=== PATIENT | female | born 1940 | race Caucasian/White ===

== ENCOUNTER 2020-07-04 17:59 | Emergency (ER) | payer MEDICARE, SELFPAY ==
[2020-07-04] VITALS (7 sets, daily range): BP systolic 106–123; BP diastolic 63–89; PULSE 54–65; RESP 12–18; TEMP 36.6; O2SAT 89–100
--- NOTE | 2020-07-04 18:49 | PC.NURSE ---
[facility] declined return to [place] [facility] accepted return ETA - 0000(midnight) Trip#[id number]
--- NOTE | 2020-07-04 20:37 | ED.GENADULT ---
HPI - General Adult General Chief complaint: Wound/Laceration Stated complaint: LACERATION R THUMB Time Seen by Provider: 07/04/20 18:08 Source: patient Mode of arrival: ambulatory Limitations: no limitations History of Present Illness HPI narrative: Patient is an 79-year-old female who presents with thumb [facility]eration from the [facility] patient is DNR comfort measures only alert and oriented to self at best. Patient has history of frequent falls. Patient was sent for right thumb laceration had caught the thumb on a sharp edge. Patient on arrival does not appear distressed or uncomfortable and is otherwise resting in the bed. Patient does not answer questions appropriately. Related Data Home Medications Medication Instructions Recorded Confirmed mirtazapine mg 07/04/20 quetiapine 07/04/20 Allergies Allergy/AdvReac Type Severity Reaction Status Date / Time No Known Allergies Allergy Verified 07/04/20 18:17 Review of Systems Review of Systems: ROS unobtainable: Yes unobtainable due to mental status PMFSH Past Medical History Medical History (Updated 07/04/20 @ 21:14 by Marcelo Lira PA-C) Dementia Exam Narrative: Exam Narrative: GENERAL: Well-appearing, well-nourished, and in no acute distress. HEAD: Normocephalic, atraumatic. EYES: PERRLA and EOMI. ENT: Nares clear, no rhinorrhea or epistaxis. Mucous membranes moist. CHEST: Clear to auscultation. No respiratory distress. No wheezes rales or rhonchi HEART: Regular rate and rhythm. No murmur heard. Normal peripheral pulses. ABDOMEN: Soft, nontender, nondistended EXTREMITIES: Normal range of motion. No edema. 2 cm linear flap laceration along the lateral aspect of the right thumb SKIN: Warm, dry, no rash. NEURO: No focal deficits. Orients to verbal stimuli. Cranial nerves II through XII grossly intact. Neurovascularly intact. Capillary refill less than 2 seconds PSYCH: Normal mood and affect. Course Vital Signs Vital signs: Vital Signs Temperature 97.8 F 07/04/20 18:07 Pulse Rate 64 07/04/20 18:07 Respiratory Rate 13 07/04/20 18:07 Blood Pressure 123/63 07/04/20 18:07 Pulse Oximetry 98 07/04/20 18:07 Temperature 97.8 F 07/04/20 18:07 Pulse Rate 64 07/04/20 19:01 Respiratory Rate 16 07/04/20 19:01 Blood Pressure 108/89 07/04/20 19:01 Pulse Oximetry 99 07/04/20 19:01 Procedures Laceration Laceration 1: Date: 07/04/20 Time: 21:11 Site: upper extremity Side (If applicable): right Size (cm): 2 Description: flap Depth: simple, single layer Local Anesthetic: other anesthetic Pre-repair: wound explored, irrigated and irrigated extensively ====== Skin Level ====== Skin layer closed with: camden Number of sutures: 5 ====== Subcutaneous Layer ====== ====== Muscle Layer ====== ====== Tendon Layer ====== Dressing: Patient's wound was prepped with soap scrub wound was explored let was used to anesthetize the wound which was adequate camden were used to close the thumb wound given that the patient is taking and was concerned that she would pick her sutures out. Camden are in wound is well approximated neurovascularly intact antibiotic ointment nonadhesive 4 x 4 and Coban placed post procedure Medical Decision Making MDM Narrative Medical decision making narrative: Patients injury or pain is consistent with musculoskeletal etiology. No signs of neurological or vascular compromise on exam. Compartments and tisues are soft without signs of compartment syndrome. Pain is felt appropriate for further evaluation on an outpatient basis. Wound closed in the emergency department. [facility] Vital Signs Vital Signs: Vital Signs Temperature 97.8 F 07/04/20 18:07 Pulse Rate 64 07/04/20 18:07 Respiratory Rate 13 07/04/20 18:07 Blood Pressure 123/63 07/04/20 18:07 Pulse
--- NOTE | 2020-07-04 20:39 | PC.NURSE ---
tried to contact [facility], [facility] and [employer] to get a faster ETA. all companies declined having trucks
--- NOTE | 2020-07-04 21:11 | PC.NURSE ---
[facility] called 2103 to inform me that they are in route to [place]. eta 20 minutes. kristi called again stating the rig was pulled for a 911 call and new eta is 2200
--- NOTE | 2020-07-05 00:07 | PC.NURSE ---
[facility] has arrived
== END 2020-07-05 00:22 ==
PROVIDERS: Emergency Provider Emergency Medicine; PCP Family Medicine
DX: S61.011A Laceration without foreign body of right thumb without damage to nail, initial encounter (principal); F03.90 Unspecified dementia, unspecified severity, without behavioral disturbance, psychotic disturbance, mood disturbance, and anxiety; Z66 Do not resuscitate; R29.6 Repeated falls; W26.9XXA Contact with unspecified sharp object(s), initial encounter
CPT/HCPCS: 12001; 99282

== ENCOUNTER 2021-02-20 08:09 | Emergency (ER) | payer MEDICARE, SELFPAY ==
[2021-02-20 08:13] VITALS: BP 129/72; PULSE 59; RESP 18; O2SAT 98
--- NOTE | 2021-02-20 09:04 | ED.FALL ---
HPI - Fall General Chief Complaint: Fall Stated Complaint: FALL Time Seen by Provider: 02/20/21 08:46 Source: EMS Mode of arrival: EMS Limitations: physical limitation, clinical condition and dementia History of Present Illness HPI Narrative: 80-year-old female Severe dementia, O x0-1 From SNF after some sort of a fall, details are lacking In any case she has a small laceration to her right upper lip She cannot make any other lucid complaints or offer any history but does not appear to have any other injuries Related Data Home Medications Medication Instructions Recorded Confirmed mirtazapine 7.5 mg PO HS 07/04/20 07/04/20 quetiapine 25 mg PO BID 07/04/20 Allergies Allergy/AdvReac Type Severity Reaction Status Date / Time No Known Allergies Allergy Verified 07/04/20 18:17 Review of Systems Review of Systems: ROS unobtainable: Yes unobtainable due to medical condition, unobtainable due to mental status and other (Patient is severely demented, uncooperative) PMF Past Medical History Medical History Dementia Exam Const: General: cooperative, alert and ill appearing Nutritional Appearance: thin Limitations: behavioral limitations Other: Frail, elderly, O x0 HENMT: Head: normal to inspection, normocephalic, atraumatic and laceration Ears: external ears normal General nose exam: no epistaxis Other: Small laceration upper right lip 3 or 4 mm which does not appear to be through and through Does not appear to have any luxation or broken teeth Eyes: Conjunctivae: conjunctivae normal EOM: EOMs intact bilaterally Neck: Neck: normal visual inspection, supple and no JVD Chest: Other: No chest wall tenderness Resp: Effort & Inspection: normal respiratory effort and not labored Auscultation: clear to auscultation bilaterally and other (BS =) GI: GI Palp: Yes Soft to palpation and No Tenderness to palpation present (GI) Skin: General skin exam: no rashes or lesions noted Neuro: General: moves all extremities Extrem: Other: No obvious injuries or deformities Course Course Emergency Course: She has a fairly minor laceration which could be repaired for cosmesis but she is not at all cooperative enough to even consider doing that As she is a DNR with comfort measures and no other obvious injuries we did not pursue any other imaging to look for occult issues which would not be addressed given those constraints Vital Signs Vital signs: Vital Signs Pulse Rate 59 L 02/20/21 08:13 Respiratory Rate 18 02/20/21 08:13 Blood Pressure 129/72 02/20/21 08:13 Pulse Oximetry 98 02/20/21 08:13 Pulse Rate 59 L 02/20/21 08:13 Respiratory Rate 18 02/20/21 08:13 Blood Pressure 129/72 02/20/21 08:13 Pulse Oximetry 98 02/20/21 08:13 MDM - Fall Medical Records Attestation: I reviewed the patient's medical records. Discharge Plan Discharge Clinical Impression: Laceration of lip [facility] Condition: Stable Instructions: Laceration (ED) Additional Instructions: If patient would allow, antibiotic ointment could be placed on the lip laceration 3 times a day Prescriptions: No Action quetiapine 25 mg tablet 25 mg PO BID RF: 0 mirtazapine 7.5 mg tablet 7.5 mg PO HS RF: 0 Follow-up/Referrals: Marivel,Binu Ferrer MD [Primary Care Provider] - (As needed)
--- NOTE | 2021-02-20 09:48 | PC.NURSE ---
Patient ready for discharge back to facility. Awaiting patient transport at this time. Will continue to monitor patient
--- NOTE | 2021-02-20 10:13 | PC.NURSE ---
Transport has been called and set up for patient. Awaiting call back ETA.
== END 2021-02-20 10:48 ==
PROVIDERS: Emergency Provider Emergency Medicine; PCP Family Medicine
DX: S01.511A Laceration without foreign body of lip, initial encounter (principal); F03.90 Unspecified dementia, unspecified severity, without behavioral disturbance, psychotic disturbance, mood disturbance, and anxiety; Z66 Do not resuscitate; W19.XXXA Unspecified fall, initial encounter
CPT/HCPCS: 99282

== ENCOUNTER 2021-04-19 02:08 | Emergency (ER) | payer MEDICARE, SELFPAY ==
--- NOTE | ~2021-04-19 | CT_ITS ---
EXAMINATION: CT brain wo con DATE: 04/19/2021 03:47 INDICATION: Head injury. TECHNIQUE: Computed tomography (CT) of the head was performed without intravenous contrast. The mA wa s adjusted according to patient size. Iterative reconstruction technique was employed. The dose-lengt h product was 605.33 mGy-cm. COMPARISON: None FINDINGS: There is diffuse brain volume loss with a posterior predominance. There are scattered areas of low attenuation in the cerebral white matter. There is no intracranial hemorrhage, acute infarcti on, or abnormal intracranial mass lesion. There is expected dilatation of the occipital and temporal horns of the lateral ventricles. There is complete opacification of the left frontal, anterior ethmoi d, and maxillary sinuses with thickening and sclerosis of the sinus carias, consistent with chronic si nusitis. The mastoid air cells are normal. The orbits are normal. IMPRESSION: 1. Extensive nonspecific cerebral white matter disease, which likely represents chronic small vessel ischemic disease. 2. Chronic sinusitis. Reviewed, dictated and finalized at location A. RING MACHINE OPERATOR
[2021-04-19 02:05] VITALS: BP 130/67; PULSE 67; RESP 24; TEMP 35.8; O2SAT 100
--- NOTE | 2021-04-19 03:28 | ED.GENADULT ---
HPI - General Adult General Chief complaint: Fall Stated complaint: fall head laceration Time Seen by Provider: 04/19/21 02:34 History of Present Illness HPI narrative: 80-year-old female [facility] having a ground-level fall. Patient did strike her head. Patient does have skin tears of varying ages. Related Data Home Medications Medication Instructions Recorded Confirmed mirtazapine 7.5 mg PO HS 07/04/20 07/04/20 quetiapine 25 mg PO BID 07/04/20 Allergies Allergy/AdvReac Type Severity Reaction Status Date / Time No Known Allergies Allergy Verified 07/04/20 18:17 Review of Systems Review of Systems: ROS unobtainable: Yes unobtainable due to mental status and other (dementia) [facility] [place] Past Medical History Medical History Dementia Exam Narrative: APPEARANCE: Well appearing, no pain in distress HEAD: normocephalic, 2 cm laceration on scalp. EYES: PERRLA/EOMI, conjunctivae clear. NOSE: Normal no drainage EARS:TMS clear with good light reflex. THROAT: Pharynx clear, no exudate. NECK: Supple. No adenopathy, no masses. RESPIRATORY: Airway patent, respirations nonlabored. Clear to auscultation bilaterally, no rales, rhonchi, wheezing. CARDIOVASCULAR: Regular rate and rhythm without murmurs rubs or gallops. ABDOMINAL: Soft, nontender, nondistended, normal bowel sounds MUSCULOSKELETAL: Moves all extremities. Strength/ROM intact, No edema, No calf tenderness. NEURO: Alert. Cranial nerves II through XII intact. Good gait. Good coordination SKIN: Other skin tears on right arm and a new skin tear left arm PSYCHIATRIC: Normal affect/mood. Course Course Emergency Course: Scalp laceration was repaired as described in the procedure note Head CT was negative for acute intracranial abnormality. [facility] Vital Signs Vital signs: Vital Signs Temperature 96.5 F L 04/19/21 02:05 Pulse Rate 67 04/19/21 02:05 Respiratory Rate 24 H 04/19/21 02:05 Blood Pressure 130/67 04/19/21 02:05 Pulse Oximetry 100 04/19/21 02:05 Temperature 96.5 F L 04/19/21 02:05 Pulse Rate 59 L 04/19/21 05:36 Respiratory Rate 18 04/19/21 05:36 Blood Pressure 132/64 04/19/21 05:36 Pulse Oximetry 96 04/19/21 05:36 Procedures Laceration Laceration 1: Time: 03:28 Site: scalp Size (cm): 2 Description: linear Local Anesthetic: lidocaine 1% ====== Skin Level ====== Skin layer closed with: camden Number of sutures: 3 ====== Subcutaneous Layer ====== ====== Muscle Layer ====== ====== Tendon Layer ====== Laceration 2: Time: : Site: upper extremity Side (If applicable): left Size (cm): 4 Description: other (Skin tear) ====== Skin Level ====== Skin layer closed with: steri strips ====== Subcutaneous Layer ====== ====== Muscle Layer ====== ====== Tendon Layer ====== Medical Decision Making MDM Narrative Medical decision making narrative: Head CT was ordered. Scalp laceration repaired with 3 camden Skin tear on left arm was repaired with Steri-Strips All other skin tears were cleansed and treated with antibiotic ointment Vital Signs Vital Signs: Vital Signs Temperature 96.5 F L 04/19/21 02:05 Pulse Rate 67 04/19/21 02:05 Respiratory Rate 24 H 04/19/21 02:05 Blood Pressure 130/67 04/19/21 02:05 Pulse Oximetry 100 04/19/21 02:05 Temperature 96.5 F L 04/19/21 02:05 Pulse Rate 59 L 04/19/21 05:36 Respiratory Rate 18 04/19/21 05:36 Blood Pressure 132/64 04/19/21 05:36 Pulse Oximetry 96 04/19/21 05:36 Imaging Data Radiologist's impression: Stat read: CT head impression: No acute intracranial abnormality. Moderate chronic senescent findings: Parenchymal volume loss, nonspecific white matter hypoattenuat
[2021-04-19 03:57] VITALS: BP 118/56; RESP 18; O2SAT 97
[2021-04-19 05:36] VITALS: BP 132/64; PULSE 59; RESP 18; O2SAT 96
--- NOTE | 2021-04-19 07:51 | PC.NURSE ---
[facility] has arrived
== END 2021-04-19 07:54 ==
PROVIDERS: Emergency Provider Emergency Medicine; PCP Family Medicine
DX: S01.01XA Laceration without foreign body of scalp, initial encounter (principal); F03.90 Unspecified dementia, unspecified severity, without behavioral disturbance, psychotic disturbance, mood disturbance, and anxiety; W19.XXXA Unspecified fall, initial encounter
CPT/HCPCS: 12001; 70450; 99284

== ENCOUNTER 2021-06-01 12:31 | Emergency (ER) | payer MEDICARE, MEDICAID, SELFPAY ==
--- NOTE | ~2021-06-01 | XR_ITS ---
EXAMINATION: XR elbow RT 2V DATE: 06/01/2021 12:58 INDICATION: Right forearm laceration. TECHNIQUE: 2 views of right elbow were obtained. COMPARISON: None. FINDINGS: Bone alignment is normal. No fracture. Joint spaces are well maintained. No elbow joint eff usion. There is a large forearm laceration. No radiopaque foreign body. IMPRESSION: 1. No fracture or radiopaque foreign body. Reviewed, dictated and finalized at location A. L CADD TECHNICIAN
--- NOTE | ~2021-06-01 | CT_ITS ---
EXAMINATION: CT cervical spine wo con DATE: 06/01/2021 13:39 INDICATION: Neck injury. TECHNIQUE: Computed tomography (CT) of the cervical spine was performed without intravenous contrast. Automated exposure control and iterative reconstruction technique were employed. The dose-length pro duct was 94.17 mGy-cm. COMPARISON: None FINDINGS: There is mild scarring at the lung apices. There is kyphosis of cervical spine. There is mi ld chronic anterior wedging of C4, C5, and C7 vertebral bodies. There is 10 degrees levoscoliosis of cervical spine. 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 There is a comp ression fracture of T3 with less than 1/5 loss of height. There is severely decreased disc height fro m C3-C4 through C6-C7 with endplate remodeling. The following disc levels are specifically discussed: C2-C3: There is moderate bilateral uncovertebral joint osteoarthritis. There is severe bilateral face t joint osteoarthritis. There is mild bilateral neural foraminal stenosis. There is mild central kylah l stenosis. C3-C4: There is severe bilateral uncovertebral joint osteoarthritis. There is moderate bilateral face t joint osteoarthritis. There is mild bilateral neural foraminal stenosis. There is mild central kylah l stenosis. C4-C5: There is severe bilateral uncovertebral joint osteoarthritis. There is severe bilateral facet joint osteoarthritis. There is moderate right and mild left neural foraminal stenosis. There is mild central canal stenosis. C5-C6: Interbody fusion is noted. There is severe bilateral uncovertebral joint osteoarthritis. There is mild right and severe left facet joint osteoarthritis. There is mild bilateral neural foraminal s tenosis. There is mild central canal stenosis. C6-C7: There is severe bilateral uncovertebral joint osteoarthritis. There is moderate bilateral face t joint osteoarthritis. There is moderate bilateral neural foraminal stenosis. There is mild central canal stenosis. C7-T1: There is no uncovertebral joint osteoarthritis. There is severe bilateral facet joint osteoart hritis. There is mild bilateral neural foraminal stenosis. There is no central canal stenosis. IMPRESSION: 1. Age-indeterminate compression fracture of T3 with less than 1/5 loss of height. 2. Severe cervical spondylosis. Reviewed, dictated and finalized at location A. ITE EXTERMINATOR HELPER IMPRESSION: 1. Age-indeterminate compression fracture of T3 with less than 1/5 loss of heig ht. 2. Severe cervical spondylosis.
--- NOTE | ~2021-06-01 | CT_ITS ---
EXAMINATION: CT brain wo con DATE: 06/01/2021 13:36 INDICATION: Confusion. Fall. TECHNIQUE: Computed tomography (CT) of the head was performed without intravenous contrast. The mA wa s adjusted according to patient size. Iterative reconstruction technique was employed. The dose-lengt h product was 605.33 mGy-cm. COMPARISON: Head CT 04/19/2021 FINDINGS: There is diffuse brain volume loss. There are scattered areas of low attenuation in the cer ebral white matter. There is no intracranial hemorrhage, acute infarction, or abnormal intracranial m ass lesion. The ventricles are normal in size. There is mucosal thickening in the paranasal sinuses. There is thickening sclerosis of the carias of the left maxillary and ethmoid sinuses, consistent with chronic sinusitis. The mastoid air cells are normal. The orbits are normal. IMPRESSION: 1. Stable extensive nonspecific cerebral white matter disease, which likely represents chronic small vessel ischemic disease. 2. Chronic sinusitis. Reviewed, dictated and finalized at location A. RVENTIONAL NEURORADIOLOGIST IMPRESSION: 1. Stable extensive nonspecific cerebral white matter disease, which likely rep resents chronic small vessel ischemic disease. 2. Chronic sinusitis.
--- NOTE | ~2021-06-01 | XR_ITS ---
EXAMINATION: XR forearm RT 2V DATE: 06/01/2021 12:58 INDICATION: Right forearm laceration. TECHNIQUE: 2 views of right forearm were obtained. COMPARISON: None. FINDINGS: Bone alignment is normal. No fracture. 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 There is no elbow joint effusion. There is a large forearm laceratio n. IMPRESSION: 1. Large forearm laceration. No fracture or radiopaque foreign body. Reviewed, dictated and finalized at location A. RIAL ASSISTANT
[2021-06-01 12:51] VITALS: O2SAT 100
[2021-06-01 12:52] VITALS: BP 122/81
[2021-06-01 12:56] VITALS: BP 122/81; PULSE 72; RESP 17; TEMP 36.4; O2SAT 98
[2021-06-01 13:01] VITALS: BP 98/74; O2SAT 100
[2021-06-01 13:02] VITALS: O2SAT 100
--- NOTE | 2021-06-01 13:46 | PC.NURSE ---
Pt returned from CT scan and is actively trying to get out of bed. Took multiple staff members to assist pt back to bed, pt was very unsteady on her feet when she tried to get up. Pt had to be lifted back to bed, as she cannot follow commands. Pt tucked in with warm blankets, continues to have hallucinations, talking to her mother and seeing children in the room, etc (this is baseline per EMS report from facility). Tech called to bedside to sit with pt for her safety. Awaiting plastics consult.
--- NOTE | 2021-06-01 13:59 | PC.NURSE ---
Dr Mclain at bedside. 2 techs at bedside to assist
--- NOTE | 2021-06-01 14:26 | ED.UPPEXIN ---
HPI - Extremity Injury (Upper) General Chief Complaint: Extremity Injury, Upper Stated Complaint: laceration Time Seen by Provider: 06/01/21 12:58 Source: EMS and RN notes reviewed Mode of arrival: EMS History of Present Illness HPI narrative: Patient is 80 years old white female, memory care unit, found to have big laceration of the right forearm. Unknown cause. Patient is oriented to her name only which is normal for the patient base mental status Related Data Home Medications Medication Instructions Recorded Confirmed mirtazapine 7.5 mg PO HS 07/04/20 07/04/20 quetiapine 25 mg PO BID 07/04/20 calcium carbonate 06/01/21 Allergies Allergy/AdvReac Type Severity Reaction Status Date / Time No Known Allergies Allergy Verified 07/04/20 18:17 Review of Systems Review of Systems: ROS unobtainable: Yes unobtainable due to medical condition and unobtainable due to mental status PMFSH Past Medical History Medical History Dementia Exam Narrative: General appearance: Well-developed, well-nourished Skin: Normal color, right forearm showing an ugly, regular laceration at the right forearm posteriorly, 14 cm x 7 cm x 1 cm. Macerated skin at the edges, involving subcutaneous fatty layer, no muscle or ligaments involved Head: Normocephalic, nontraumatic, patient have chronic helmet on Eyes: Clear conjunctiva Neck: Supple, nontender Chest and respiratory: Airway patent, no respiratory distress, no accessory muscle use Heart: Regular rate/rhythm Abdomen: Soft, nontender, no organomegaly, quiet bowel sounds Vascular: Normal peripheral pulses, normal capillary refill. Musculoskeletal: Normal range of motion, nontender back Neurologic: Alert to her name only no focal Course Course Emergency Course: Patient was managed by Dr. Mclain in the emergency room prior to discharge back to the assisted, no sutures or camden Consultations Consultation #1: Dr. Mclain Date: 06/01/21 Time: 14:44 Vital Signs Vital signs: Vital Signs Temperature 36.4 C 06/01/21 12:56 Pulse Rate 72 06/01/21 12:56 Respiratory Rate 17 06/01/21 12:56 Blood Pressure 122/81 06/01/21 12:56 Pulse Oximetry 98 06/01/21 12:56 Temperature 36.4 C 06/01/21 12:56 Pulse Rate 72 06/01/21 12:56 Respiratory Rate 17 06/01/21 12:56 Blood Pressure 122/81 06/01/21 12:56 Pulse Oximetry 98 06/01/21 12:56 MDM - Extremity Injury (Upper) Imaging Data Radiologist's impression: Impressions Elbow X-Ray 06/01/21 13:01 IMPRESSION: 1. No fracture or radiopaque foreign body. Forearm X-Ray 06/01/21 13:01 IMPRESSION: 1. Large forearm laceration. No fracture or radiopaque foreign body. Head CT 06/01/21 13:47 IMPRESSION: 1. Stable extensive nonspecific cerebral white matter disease, which likely represents chronic small vessel ischemic disease. 2. Chronic sinusitis. Cervical Spine CT 06/01/21 13:52 IMPRESSION: 1. Age-indeterminate compression fracture of T3 with less than 1/5 loss of height. 2. Severe cervical spondylosis. Critical Care Time Critical Care Time Critical Care Time: Yes Total Critical Care Time: 30 Discharge Plan Discharge Clinical Impression: Laceration Patient Disposition: Hospice [facility] Inpatient Condition: Improved Instructions: Laceration (ED) Additional Instructions: Return if symptoms are worsening , call your family physician for appointment, take Tylenol as as needed for aches and pain, continue home medications. Prescriptions: New cephalexin 500 mg capsule 500 mg PO Q8H Qty: 21 RF: 0 No Action quetiapine 25 m
--- NOTE | 2021-06-01 14:54 | OP_ITS ---
This report was moved to the correct visit, on 06/20/2021. Original report was signed by Orville Mclain MD 06/01/2021 [id number]. ADDENDUM Procedure addendum: The two hanging strips of skin and subcutaneous tissue were quickly amputated with a number 15 scalpel. Addendum Documented By: Orville Mclain MD 06/01/21 1528 Addendum Signed By: <Electronically signed by Orville Mclain MD> 2 1528 Procedure Note - Detailed Date of Procedure 06/01/21 Pre-op Diagnosis 15 cm stellate laceration of left ulnar forearm and elbow. Post-op Diagnosis same Procedure Performed 3 cm sharp excisional debridement of skin and subcutaneous tissue. Steri-Strips wound closure 15 cm of laceration through skin subcutaneous tissue and deep fascia Surgeon Orville Mclain MD Anesthesia none Indications This is a demented female from a [facility] who sustained a long laceration to the ulnar forearm and crossing in stellate fashion over the elbow. The injury was apparently not witnessed. The patient is conversive and very active on the gurney but not fully oriented and cannot give any history. She presents wearing a leather helmet that appears to be part of her normal attire at the [facility]. She is able to grasp and flex her wrist fingers and elbow. Part of the time during the exam and treatment she complained there was pain other times she did not. It was apparent that some muscular tissue had been stripped from the lateral epicondyle and olecranon. Otherwise the wound was through skin subcutaneous tissue and deep fascia running longitudinally along the ulnar forearm approximately 13 cm from the olecranon. There was no significant bleeding. There was no obvious foreign material or soiling. There were 2 narrow flaps of hanging skin and subcutaneous tissue approximately 1 cm wide and 3 and 5 cm in length. This situation was assessed and appeared to me that we would be able to close this wound with Steri-Strips Tegaderm and gauze roll. There appeared to be no motor sensory deficits. Description of Procedure To assistants were available to help hold the right arm with the patient and to keep her lying on her back. We were able to rinse the area and determine the condition of the skin. I was able to apply skin adhesive to both sides of the wound from 1 end to the other. Full length 1/2 inch Steri-Strips were applied from 1 end to the other. These well approximated the skin and margins including the stellate area at the elbow. Following that several medium size Tegaderm were applied over a full-length Telfa sponge. This was then wrapped with Kerlix roll and some gently applied 2 in Coban wrap. The patient seemed to be in better condition following that complaining less and was able to move her arm and hand. Will be hoping to see her in [facility] for some assistance in changing the dressing next week. She is being discharged by the ER physician on some cephalexin. She did receive a Tdap today Estimated Blood Loss 2 Tourniquet Time 0 Drains No Packing No Pathology none sent Complications No immediate complications Condition stable Disposition no change This dictation may have been done utilizing a voice recognition system. Attempts have been made to correct errors. However, there may be uncorrected grammatical, spelling, and recognition errors present. Report Initialized date/time: Orville Mclain MD 06/01/21 / [id number] Electronically signed by: Orville Mclain MD 06/01/21 1456 [facility]
[2021-06-01] MEDS: TETANUS,DIPHTHERIA,AC PERTUSSIS ADULT (0.5 ML) BOOSTRIX IM (15:24)
== END 2021-06-01 16:18 ==
PROVIDERS: Emergency Provider Emergency Medicine; PCP Family Medicine
DX: S51.811A Laceration without foreign body of right forearm, initial encounter (principal); Z23 Encounter for immunization; F03.90 Unspecified dementia, unspecified severity, without behavioral disturbance, psychotic disturbance, mood disturbance, and anxiety; R90.82 White matter disease, unspecified; J32.9 Chronic sinusitis, unspecified; M47.812 Spondylosis without myelopathy or radiculopathy, cervical region; X58.XXXA Exposure to other specified factors, initial encounter
CPT/HCPCS: 11043; 12005; 70450; 72125; 73070; 73090; 90471; 90715; 99284

== ENCOUNTER 2021-06-06 11:25 | Outpatient (RCR) | payer MEDICARE, SELFPAY ==
[2021-06-06 11:30] VITALS: BMI 20.3
== END 2021-07-11 12:27 | disposition home or self-care (01) ==
LOC: ANHWOC 11:25
PROVIDERS: PCP Internal Medicine; Visit Provider Plastic Surgery
DX: S41.111D Laceration without foreign body of right upper arm, subsequent encounter (principal)
CPT/HCPCS: 99212; G0463

== ENCOUNTER 2021-06-08 14:34 | Inpatient (IN) | payer MEDICARE, MEDICAID, SELFPAY ==
--- NOTE | ~2021-06-08 | CT_ITS ---
EXAMINATION: CT cervical spine wo con DATE: 06/08/2021 15:10 INDICATION: Unwitnessed fall with head injury TECHNIQUE: Computed tomography (CT) of the cervical spine was performed without intravenous contrast. Automated exposure control and iterative reconstruction technique were employed. The dose-length pro duct was 104.73 mGy-cm. COMPARISON: 06/01/2021 FINDINGS: Unchanged cervical kyphosis and dextrocurvature. Unchanged mild anterior wedging at C4, C5 and C7. Ch ronic nonunited fractures of the C5 and C6 spinous processes. Unchanged T3 compression fracture with <20% anterior vertebral body height loss. No acute fracture. Severe disc height loss at C3-C4 through C6-C7 with severe uncovertebral osteoarthritis and endplate remodeling. Multilevel moderate to sever e cervical facet osteoarthritis. Multilevel mild central canal stenosis and mild to moderate neural f oraminal stenosis. See prior report for level by level analysis. Cervical soft tissues are unremarkab le. Visualized apices of the lungs are clear. IMPRESSION: 1. Unchanged age-indeterminate mild T3 compression fracture with <20% anterior vertebral body height loss. No acute osseous abnormality. 2. Severe cervical spondylosis. Reviewed, dictated and finalized at location A. ANALYSIS OPERATOR
--- NOTE | ~2021-06-08 | CT_ITS ---
EXAMINATION: CT brain wo con DATE: 06/08/2021 15:10 INDICATION: Head injury TECHNIQUE: Computed tomography (CT) of the head was performed without intravenous contrast. Sagittal and coronal reconstructions were performed. The mA was adjusted according to patient size. Iterative reconstruction technique was employed. The dose-length product was 605.33 mGy-cm. COMPARISON: head CT dated 06/01/2021 FINDINGS: No fracture. No acute intracranial hemorrhage, acute infarction or abnormal extra axial fluid collect ion. There is extensive scattered white matter hypoattenuation consistent with chronic small vessel i schemic disease. Symmetric prominence of the sulci and ventricles consistent with mild to moderate ag e-appropriate diffuse cerebral volume loss. No mass/mass effect. Unchanged opacification of the left maxillary and ethmoid sinuses with thickened sclerotic carias consistent with chronic sinusitis. The o rbits and mastoid air cells are normal. IMPRESSION: 1. No fracture or acute intracranial process. 2. Age-related changes including mild to moderate diffuse volume loss and extensive scattered white m atter hypoattenuation consistent with chronic small vessel ischemic disease. 3. Chronic left maxillary and ethmoid sinusitis. Reviewed, dictated and finalized at location A. H SETTER IMPRESSION: 1. No fracture or acute intracranial process. 2. Age-related changes including mild to moderate diffuse volume loss and exten sive scattered white matter hypoattenuation consistent with chronic small vesse l ischemic disease. 3. Chronic left maxillary and ethmoid sinusitis.
--- NOTE | ~2021-06-08 | CT_ITS ---
EXAMINATION: CT hip LT w con DATE: 06/08/2021 18:01 INDICATION: Swelling and possible abscess at the left hip. TECHNIQUE: High resolution computed tomography (CT) of the left hip was performed with 100 mL Omnipaq ue-350. Venous contrast. Additional sagittal and coronal reconstructions were performed. Automated ex posure control and iterative reconstruction technique were employed. The dose-length product was 119. 93 mGy-cm. COMPARISON: Left hip radiographs dated 06/08/2021 FINDINGS: Soft tissue swelling with subcutaneous edema surrounding a 7.4 x 5.2 x 4.1 cm rim-enhancing abscess i n the subcutaneous tissues posterior to the left greater trochanter. No soft tissue gas or radiopaque foreign bodies. The abscess appears to remain superficial to the peripheral fascia of the left glute us opal muscle and tendon. No cortical erosions or periosteal reaction to suggest osteomyelitis. N o fracture. Left hip joint space is normal with no joint effusion. Moderate osteitis pubis. Moderate left sacroiliac osteoarthritis. Severe lumbosacral spondylosis. Visualized bowels, the bladder and ut erus are unremarkable. Pelvic floor relaxation. Minimal free fluid in the pelvis. No pathologically e nlarged left inguinal or pelvic lymphadenopathy. IMPRESSION: 1. 7.4 x 5.2 x 4.1 cm enhancing fluid collection consistent with abscess in the subcutaneous tissues posterior to the left greater trochanter. Reviewed, dictated and finalized at location A. E ROOFER
--- NOTE | ~2021-06-08 | XR_ITS ---
EXAMINATION: XR hip LT 2V w AP pelvis DATE: 06/08/2021 15:15 INDICATION: Left hip pain post fall TECHNIQUE: Anteroposterior view of the pelvis and anteroposterior and frog-leg lateral views of the l eft hip were obtained. COMPARISON: None. FINDINGS: Mild lower lumbar levocurvature with moderate spondylosis. Alignment is otherwise normal. No fracture . Bilateral hip joint spaces are relatively preserved. Mild bilateral sacroiliac osteoarthritis. Oste itis pubis. IMPRESSION: 1. No acute osseous abnormality. Reviewed, dictated and finalized at location A. TER BOAT OPERATOR
--- NOTE | ~2021-06-08 | CT_ITS ---
EXAMINATION: CT elbow RT wo con DATE: 06/09/2021 08:48 INDICATION: Right elbow wound and swelling. TECHNIQUE: High resolution computed tomography (CT) of the right elbow was performed without intraven ous contrast. Additional sagittal and coronal reconstructions were performed. Automated exposure cont rol and iterative reconstruction technique were employed. The dose-length product was 300.87 mGy-cm. COMPARISON: Radiograph dated 06/01/2021 FINDINGS: Open wound at the antecubital fossa. No evident underlying abscess appreciated although sensitivity i s lower than with postcontrast imaging. No radiopaque foreign bodies or soft tissue gas. There is dif fuse subcutaneous edema about the distal upper arm, elbow and proximal forearm. No elbow joint effusi on. Bone alignment is normal. No fracture. No cortical erosions or periosteal reaction to suggest ost eomyelitis. Mild osteoarthritis at the right elbow. IMPRESSION: 1. No evident abscess, soft tissue gas or acute osseous abnormality. Reviewed, dictated and finalized at location A. Y PAINTER
--- NOTE | ~2021-06-08 | XR_ITS ---
EXAMINATION: XR chest 1V portable DATE: 06/08/2021 15:15 INDICATION: Unwitnessed fall with head injury TECHNIQUE: frontal view of the chest was obtained. COMPARISON: Chest radiograph dated 06/10/2012 FINDINGS: The lungs remain clear with no focal airspace opacities, pulmonary edema, pleural effusion or pneumot horax. Heart size is normal. Calcified bilateral hilar lymph nodes consistent with old granulomatous disease. Age-indeterminate T12 compression fracture with mild vertebral body height loss. Moderate os teoarthritis with loose osteochondral bodies at the left glenohumeral joint. IMPRESSION: 1. No acute cardiopulmonary disease. 2. Age-indeterminate T12 compression fracture. Reviewed, dictated and finalized at location A. RO ATTENDANT
[2021-06-08 14:38] VITALS: PULSE 75; RESP 18; TEMP 36.4; O2SAT 97
--- NOTE | 2021-06-08 15:11 | ED.FALL ---
HPI - Fall General Chief Complaint: Fall Stated Complaint: FALL L HIP PAIN Time Seen by Provider: 06/08/21 14:38 Source: EMS Mode of arrival: EMS Limitations: dementia History of Present Illness HPI Narrative: This is an 80 year old female with history of severe dementia who presents for evaluation of left hip pain and an unwitnessed fall. Nursing staff reports patient was found on floor and they think she fell sometime this morning. Patient is at her baseline per nursing staff. They also reports patient has been walking around but she is complaining of left hip pain. Patient is unable to given any history at all. She is verbal but she does not answer questions appropriately. Related Data Home Medications Medication Instructions Recorded Confirmed mirtazapine 15 mg PO HS 07/04/20 06/08/21 quetiapine 12.5 mg PO BID 07/04/20 06/08/21 calcium carbonate 500 mg PO DAILY 06/01/21 06/08/21 acetaminophen 325 mg PO Q4H PRN 06/06/21 06/08/21 acetaminophen [Tylenol Extra 1,000 mg PO DAILY PRN 06/06/21 06/08/21 Strength] carboxymethylcellulose sodium 1 drp EACH EYE DAILY PRN 06/06/21 06/08/21 [TheraTears] cholecalciferol (vitamin D3) 25 mcg PO DAILY 06/06/21 06/08/21 docusate sodium [Colace] 100 mg PO DAILY 06/06/21 06/08/21 Allergies Allergy/AdvReac Type Severity Reaction Status Date / Time No Known Allergies Allergy Verified 06/06/21 12:08 Review of Systems Review of Systems: ROS unobtainable: Yes unobtainable due to medical condition [facility] Past Medical History Medical History (Updated 06/09/21 @ 15:37 by LATOYA Mendez) Dementia Dysphagia Major depressive disorder Surgical History Surgical History Surgical history unknown Family History Family History Other Unknown family medical history Social History Social History Smoking status: Smoker, status unknown Alcohol intake: unknown Substance use: unknown Spiritual care concerns: No Comments unknown family history Exam Const: General: no acute distress, alert and confusion HENMT: Head: normocephalic and atraumatic Face and sinus: face symmetric Mouth: Yes Normal oral and palatal mucosa present, Yes lip normal, Yes oropharynx normal and Yes moist mucous membranes Eyes: EOM: EOMs intact bilaterally Resp: Effort & Inspection: normal respiratory effort and no retractions Auscultation: clear to auscultation bilaterally Cardio: Rate: regular rate Rhythm: regular rhythm Heart sounds: no murmurs GI: GI Palp: Yes Soft to palpation, No Tenderness to palpation present (GI) and No Guarding due to palpation present (GI) Auscultation: normal bowel sounds Extrem: Other: moves all extremities; right foream and elbow with large wound that appears to be several weeks old. no drainage or erythema; left hip with swelling and mild erythema and tenderness Course Reevaluation(s) Reevaluation #1: I discussed case with hospitalist who accepts patient to hospitalist service. Patient's differential just returned and she has 18 bands even though white count is normal. Hospitalist recommends starting antibiotics. She still agrees with admission. Date: 06/08/21 Time: 19:32 Consultations Consultation #1: I spoke with Dr. Chau. He will see patient if needed. He does not think patient needs to be admitted for OR. Date: 06/08/21 Time: 19:34 Vital Signs Vital signs: Vital Signs Temperature 97.5 F L 06/08/21 14:38 Pulse Rate 75 06/08/21 14:38 Respiratory Rate 18 06/08/21 14:38 Pulse Oximetry 97 06/08/21 14:38 Temperature 98.8 F 06/09/21 21:45 Pulse Rate 70 06/09/21 21:45 Respiratory Rate 18 06/09/21 21:45 Blood Pressure 126/67 06/09/21 21:45 Pulse Oximetry 97 06/09/21 21:45 MDM - Fall Lab Data Result diagrams: 06/09/21 06:55
[2021-06-08 15:20] VITALS: BP 100/66; PULSE 80; RESP 18; O2SAT 99
[2021-06-08 15:48] LABS: Hemoglobin 8.8 g/dL (12.0-15.0); Mean Corpuscular HGB Conc 32.6 g/dl (32-36); Mean Corpuscular Hemoglobin 32.1 pg (26-34); Mean Corpuscular Volume 98.5 fl (80-100); Mean Platelet Volume 9.4 fl (7.4-10.4); Platelet Count Result 239 k/mm3 (150-375); Red Blood Count 2.74 M/mm3 (4.2-5.4); Red Cell Distribution Width 13.4 % (11.5-14.5); White Blood Count 5.7 K/mm3 (4.5-10.0)
[2021-06-08 15:52] LABS: Add Urine Microscopic? YES; Appearance Urine Clear (Clear); Bilirubin Urine Negative (Negative); Blood Urine Negative (Negative); Color Urine Yellow (Yellow); Glucose Urine UA Negative (Negative); Ketones Urine Negative (Negative); Leukocyte Esterase Ur Negative LEU/UL (Negative); Mucus Urine Rare /lpf; Nitrate Urine Negative (Negative); Protein Urine Negative (Negative); RBC Urine 0-2 /hpf (0-2); Specific Grav Ur 1.025 (1.001-1.035); Urobilinogen Urine Negative mg/dL (<2.0); WBC Urine 0-3 /hpf
[2021-06-08 15:59] LABS: Lactic Acid Reflex 1.3 mmol/L (0.7-2.1)
[2021-06-08 16:03] LABS: Alanine Aminotransferase 31 U/L (4-35); Albumin Level 3.2 g/dL (3.5-5.1); Alkaline Phosphatase 101 U/L (38-126); Anion Gap 3 mmol/L (8-16); Aspartate Amino Transferase 35 U/L (14-36); Bilirubin,Total 0.3 mg/dL (0.2-1.3); Blood Urea Nitrogen 25 mg/dL (7-17); CRP 2.7 mg/dL (<1.0); Calcium 8.1 mg/dL (8.4-10.2); Carbon Dioxide 26 mmol/L (22-30); Chloride 107 mmol/L (98-107); Creatine Kinase 75 U/L (30-135); Estimated CRCL calculation 45 ml/min; Estimated Glomerular Filt Rate > 60; Glucose 86 mg/dL (65-110); Magnesium 2.3 mg/dL (1.6-2.3); Potassium 3.8 mmol/L (3.4-5.0); Sodium 136 mmol/L (137-145)
[2021-06-08 16:16] LABS: Band Neutrophils Percent 18 % (0-6); Eosinophils Absolute Manual 0.05 K/mm3 (0.02-0.5); Eosinophils Percent Manual 1 % (0-4); Lymphocytes Absolute Manual 0.68 K/mm3 (1.1-4.5); Monocytes Absolute Manual 0.62 K/mm3 (0.1-0.90); Monocytes Percent Manual 11 % (3-9); Neutrophils Absolute Manual 4.33 K/mm3 (1.7-7.2); Neutrophils Percent Manual 58 % (46-73); Total Cells Counted 100
[2021-06-08 16:17] LABS: Hypochromasia 1+ (NORMAL); Platelet Estimate Adequate (Adequate)
[2021-06-08 16:22] LABS: Prothrombin Time 13.1 Seconds (11.1-14.7)
[2021-06-08 16:23] LABS: Partial Thromboplastin Time 31.5 SECONDS (22.3-36.8)
[2021-06-08] MEDS: SODIUM CHLORIDE 0.9% IV 1,000 ML 999 ML IV CONT (16:30)
[2021-06-08] MEDS: HALOPERIDOL LACTATE 5 MG/ML VIAL IM (16:35)
[2021-06-08 16:38] VITALS: BP 107/87; PULSE 80; RESP 18; O2SAT 97
[2021-06-08 18:33] VITALS: BP 121/69; PULSE 68; RESP 18; O2SAT 97
--- NOTE | 2021-06-08 19:26 | PM.IMHP ---
H&P: HPI History of Present Illness Date/Time: 06/08/21 19:26 Chief Complaint: Hip pain Narrative: This is an 80-year-old female with past medical history significant for dementia [facility] she had previously been evaluated for a fall however patient did not have for any fractures. Today she is brought to the emergency room after she had another fall on staff have noticed that the patient has been complaining of left hip pain. Patient is unable to give any history. Preliminary workup was significant for CT of the pelvis with abscess present in the left retro greater trochanteric space. Patient is been admitted for further evaluation management and treatment. Review of Systems Review of Systems: ROS unobtainable: Yes unobtainable due to medical condition (Dementia) [facility] Past Medical History Medical History (Updated 06/09/21 @ 01:15 by Anamaria Pelaez MD) Dementia Dysphagia Major depressive disorder Surgical History Surgical History (Updated 06/08/21 @ 15:17 by Barby Ordaz MD) Surgical history unknown Family History Family History (Updated 06/08/21 @ 23:37 by Leanne Cooney RN) Other Unknown family medical history Social History Social History (Updated 06/08/21 @ 15:17 by Barby Ordaz MD) Smoking status: Smoker, status unknown Alcohol intake: unknown Substance use: unknown Spiritual care concerns: No Meds Home Medications and Allergies Home Medications Medication Instructions Recorded Confirmed Type mirtazapine 15 mg PO HS 07/04/20 06/08/21 History quetiapine 12.5 mg PO BID 07/04/20 06/08/21 History calcium carbonate 500 mg PO DAILY 06/01/21 06/08/21 History acetaminophen 325 mg PO Q4H PRN 06/06/21 06/08/21 History acetaminophen [Tylenol Extra 1,000 mg PO DAILY PRN 06/06/21 06/08/21 History Strength] carboxymethylcellulose sodium 1 drp EACH EYE DAILY PRN 06/06/21 06/08/21 History [TheraTears] cholecalciferol (vitamin D3) 25 mcg PO DAILY 06/06/21 06/08/21 History docusate sodium [Colace] 100 mg PO DAILY 06/06/21 06/08/21 History Allergies Allergy/AdvReac Type Severity Reaction Status Date / Time No Known Allergies Allergy Verified 06/06/21 12:08 Vital Signs Vital Signs - 24 hr 06/08/21 14:38 06/08/21 15:20 06/08/21 16:38 Temperature 97.5 F L Pulse Rate 75 80 80 Respiratory Rate 18 18 18 Blood Pressure 100/66 107/87 Pulse Oximetry 97 99 97 06/08/21 18:33 Temperature Pulse Rate 68 Respiratory Rate 18 Blood Pressure 121/69 Pulse Oximetry 97 Exam Narrative: Patient is laying in a stretcher Const: General: cooperative, comfortable, no acute distress, well developed, alert, awake and other (Well-appearing) Nutritional Appearance: underweight Orientation/consciousness: oriented to person HENMT: Head: normal to inspection, normocephalic and atraumatic Ears: hearing grossly normal bilaterally General nose exam: Normal external nose present Face and sinus: normal facial exam Mouth: Yes Normal oral and palatal mucosa present Eyes: General: appearance normal, both eyes and all related structures Alignment and Position: alignment normal Sclera: sclerae normal Pupils: Equal, round and reactive pupils present EOM: EOMs intact bilaterally Neck: Neck: normal visual inspection, full ROM, no lymphadenopathy, supple and no JVD Thyroid: thyroid normal Lymphatic: no lymphadenopathy noted Resp: Effort & Inspection: normal respiratory effort and able to speak in complete sentences Auscultation: clear to auscultation bilaterally, no crackles, no rales, no rhonchi and no wheezes Cardio: Jugular venous distension: no JVD Rate: regular rate Rhythm: regular rhythm Heart sounds: S1 normal heart sound present and S2 normal heart sound present GI: Inspection: normal to inspection GI Palp: Yes Soft to palpation, No Tenderness to palpation present (GI), No Guarding due to palpation present (GI), Yes No hepatosplenomegaly present an
[2021-06-08 22:00] VITALS: BP 97/65; PULSE 65; RESP 14; TEMP 36.4; O2SAT 96
[2021-06-08] MEDS: SODIUM CHLORIDE 0.9% IV 1,000 ML 125 ML IV CONT (22:22)
--- NOTE | 2021-06-08 23:03 | ADMGEN ---
This patient, Priya Nuno, was admitted to [facility] Surg Room 325-01 at 2210. Patient/family oriented to hospital policies and general routines including ID bracelet, bed and alarms, visiting hours, pain management, procedures, bathroom and other care routines, personal items, smoking policy, room service/diet, and visiting hours. Information on how to activate the Rapid Response Team has been discussed. Patient/Family are encouraged to report perceived risks to care and to ask questions if they do not understand what they are told or what they should do.
[2021-06-08 23:11] VITALS: BMI 14.9
[2021-06-09] MEDS: SODIUM CHLORIDE 0.9% IV 1,000 ML 65 ML IV CONT ×2 (00:23→21:00)
[2021-06-09 05:58] VITALS: BP 133/67; PULSE 61; RESP 18; TEMP 36.1; O2SAT 100
[2021-06-09 07:02] LABS: Hematocrit 31.4 % (37.0-47.0); Hemoglobin 8.9 g/dL (12.0-15.0); Mean Corpuscular HGB Conc 28.3 g/dl (32-36); Mean Corpuscular Hemoglobin 31.7 pg (26-34); Mean Corpuscular Volume 111.7 fl (80-100); Mean Platelet Volume 9.1 fl (7.4-10.4); Platelet Count Result 195 k/mm3 (150-375); Red Blood Count 2.81 M/mm3 (4.2-5.4); Red Cell Distribution Width 13.5 % (11.5-14.5); White Blood Count 4.4 K/mm3 (4.5-10.0)
[2021-06-09 07:16] LABS: Estimated CRCL calculation 48 ml/min; Estimated Glomerular Filt Rate > 60
[2021-06-09 07:19] LABS: Alanine Aminotransferase 30 U/L (4-35); Albumin Level 3.1 g/dL (3.5-5.1); Alkaline Phosphatase 87 U/L (38-126); Anion Gap 6 mmol/L (8-16); Aspartate Amino Transferase 42 U/L (14-36); Bilirubin,Total 0.4 mg/dL (0.2-1.3); Blood Urea Nitrogen 18 mg/dL (7-17); Calcium 7.7 mg/dL (8.4-10.2); Carbon Dioxide 21 mmol/L (22-30); Chloride 109 mmol/L (98-107); Estimated CRCL calculation 48 ml/min; Estimated Glomerular Filt Rate > 60; Glucose 73 mg/dL (65-110); Potassium 3.8 mmol/L (3.4-5.0); Sodium 136 mmol/L (137-145)
[2021-06-09 08:00] VITALS: O2SAT 100
[2021-06-09 08:00] LABS: Acanthocytes 1+ (NORMAL); Band Neutrophils Percent 16 % (0-6); Eosinophils Absolute Manual 0.04 K/mm3 (0.02-0.5); Eosinophils Percent Manual 1 % (0-4); Hypochromasia 1+ (NORMAL); Lymphocytes Absolute Manual 0.52 K/mm3 (1.1-4.5); Metamyelocytes Percent 1 %; Monocytes Absolute Manual 0.04 K/mm3 (0.1-0.90); Monocytes Percent Manual 1 % (3-9); Neutrophils Absolute Manual 3.74 K/mm3 (1.7-7.2); Neutrophils Percent Manual 69 % (46-73); Platelet Estimate Adequate (Adequate); Total Cells Counted 100
[2021-06-09 08:01] LABS: Poikilocytosis 1+ (NORMAL)
--- NOTE | 2021-06-09 09:54 | PCSTNOTE ---
Please refer to the Bedside Swallow Evaluation in the EMR. Please note, silent aspiration cannot be ruled out at bedside.
[2021-06-09] MEDS: DOCUSATE SODIUM 100 MG CAPSULE PO (10:52)
[2021-06-09] MEDS: CHOLECALCIFEROL 1,000 UNITS TABLET 1000 UNITS PO (10:52)
[2021-06-09] MEDS: CALCIUM CARBONATE (OSCAL) 500 MG TABLET PO (10:52)
[2021-06-09] MEDS: QUEtiapine FUMARATE 12.5 MG TABLET PO ×2 (10:52→18:10)
[2021-06-09 12:46] VITALS: BMI 14.9
[2021-06-09 14:00] VITALS: BP 125/65; PULSE 88; RESP 20; TEMP 37.1; O2SAT 96
--- NOTE | 2021-06-09 15:12 | PM.CNGS ---
Assessment and Plan Assessment and plan (1) Localized swelling, mass and lump, left lower limb: Code(s): R22.42 - Localized swelling, mass and lump, left lower limb Status: Acute Assessment and Plan: The patient presents with swelling and bruising near the left hip [facility] Hip CT suggests a fluid collection just posterior to the left greater trochanter. There is no overlying erythema or warmth to suggest cellulitis, and no local wounds or openings to the skin that would introduce bacteria. She also has a normal WBC count and is afebrile. With the recent trauma, this appears more likely to be a hematoma or a sterile fluid collection due to injury. There is no clinical evidence at this time to suggest that this is an abscess. Therefore, there is no indication for surgical intervention at this time, and we would recommend to continue to monitor this area. May apply ice to the area as needed. Okay from our standpoint to stop antibiotics and [facility] when okay with the primary service. Thank you for allowing us to see the patient in consultation and we will continue to follow along with you. (2) Unwitnessed fall: Code(s): R29.6 - Repeated falls Status: Acute (3) Dementia: Code(s): F03.90 - Unspecified dementia without behavioral disturbance Status: Acute Additional Plan I have discussed the patient's case and plan of care with Dr. Breaux. History of Present Illness Consult details Consult date: 06/09/21 Reason for consult: other (Possible left hip abscess) Requesting physician: Anamaria Pelaez MD Narrative: This is an 80-year-old female who is verbal but unable to provide any history due to severe dementia, therefore her history is obtained from review of her EMR. [facility]. She was found on the ground by staff. She was brought into the ER for evaluation of left hip pain. Head CT showed age-related changed, but no fracture or acute intracranial process. Hip and pelvis x-ray showed no acute osseous abnormality. Cervical spine CT showed no acute osseous abnormality. Hip CT showed a 7.4 x 5.2 x 4.1 cm enhancing fluid collection in the subcutaneous tissues posterior to the left greater trochanter. Labs showed a normal WBC count and patient is afebrile. The patient was admitted to the Hospitalist service and started on IV Cefazolin and Vancomycin. Our service has been consulted for the fluid collection near the left hip with concerns of possible abscess. The patient is now seen on the medical floor. No family at the bedside. She denies pain at this time. Review of Systems Review of Systems: ROS unobtainable: Yes unobtainable due to mental status PMFSH Past Medical History Medical History (Updated 06/09/21 @ 15:37 by LATOYA Mendez) Dementia Dysphagia Major depressive disorder Surgical History Surgical History Surgical history unknown Family History Family History Other Unknown family medical history Social History Social History Smoking status: Smoker, status unknown Alcohol intake: unknown Substance use: unknown Spiritual care concerns: No Meds Home Medications and Allergies Home Medications Medication Instructions Recorded Confirmed Type mirtazapine 15 mg PO HS 07/04/20 06/08/21 History quetiapine 12.5 mg PO BID 07/04/20 06/08/21 History calcium carbonate 500 mg PO DAILY 06/01/21 06/08/21 History acetaminophen 325 mg PO Q4H PRN 06/06/21 06/08/21 History acetaminophen [Tylenol Extra 1,000 mg PO DAILY PRN 06/06/21 06/08/21 History Strength] carboxymethylcellulose sodium 1 drp EACH EYE DAILY PRN 06/06/21 06/08/21 History [TheraTears] cholecalciferol (v
--- NOTE | 2021-06-09 16:11 | PM.IMPN ---
Progress Note: A&P Assessment and Plan (1) Abscess of hip, left: Code(s): L02.416 - Cutaneous abscess of left lower limb Status: Acute Assessment and Plan: Admit to regular medical floor Bed rest Vitals as per unit protocol Continue level 6 Dysphagia diet Consult to ortho Currently on cefazolin and vancomycin Blood cultures have been ordered and pending at the time of this dictation. Continue to monitor Supportive care (2) Unwitnessed fall: Code(s): R29.6 - Repeated falls Status: Acute Assessment and Plan: Fall precautions (3) Acute pain of left hip: Code(s): M25.552 - Pain in left hip Status: Acute Assessment and Plan: Likely secondary to abscess Pain management Currently receiving Tylenol as needed for pain. (4) Open wound of right elbow: Code(s): S51.001A - Unspecified open wound of right elbow, initial encounter Status: Acute Assessment and Plan: Continue Local Wound care Distal wound dehiscence No purulent discharge CT of elbow is pending (5) Anemia: Code(s): D64.9 - Anemia, unspecified Status: Acute Assessment and Plan: Macrocytic normocytic anemia; check B12 and folate levels. 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 Continue to monitor Follow-up in the outpatient setting (6) Dementia: Code(s): F03.90 - Unspecified dementia without behavioral disturbance Status: Acute Assessment and Plan: Continue mirtazapine and quetiapine Subjective Date/time seen: 06/09/21 16:11 S: Patient was seen and examined at the bedside. She is pleasantly confused. She did not appear to be in any distress. Review of Systems Review of Systems: ROS unobtainable: Yes unobtainable due to medical condition (Dementia) Exam Narrative: Patient is laying in a stretcher Const: General: cooperative, comfortable, no acute distress, well developed, alert, awake and other (Well-appearing) Nutritional Appearance: underweight Orientation/consciousness: oriented to person HENMT: Head: normal to inspection, normocephalic and atraumatic Ears: hearing grossly normal bilaterally General nose exam: Normal external nose present Face and sinus: normal facial exam Mouth: Yes Normal oral and palatal mucosa present Eyes: General: appearance normal, both eyes and all related structures Alignment and Position: alignment normal Sclera: sclerae normal Pupils: Equal, round and reactive pupils present EOM: EOMs intact bilaterally Neck: Neck: normal visual inspection, full ROM, no lymphadenopathy, supple and no JVD Thyroid: thyroid normal Lymphatic: no lymphadenopathy noted Resp: Effort & Inspection: normal respiratory effort and able to speak in complete sentences Auscultation: clear to auscultation bilaterally, no crackles, no rales, no rhonchi and no wheezes Cardio: Jugular venous distension: no JVD Rate: regular rate Rhythm: regular rhythm Heart sounds: S1 normal heart sound present and S2 normal heart sound present GI: Inspection: normal to inspection : General: Yes deferred Skin: General skin exam: erythema Rashes: no rashes Wounds: wounds noted (Right elbow surgical wound Y shape and wound dehiscence) Neuro: General: oriented to person, CN's II-XI intact bilaterally and Unable to assess gait Cranial nerves: Yes CN's II-XII intact bilaterally and Yes Equal, round and reactive pupils present Cognition (Neuro): abnormal cognition (Cognitive impairment ) Speech: normal speech Gait exam (Neuro): Unable to assess gait Motor exam (neuro): 5/5 motor strength present throughout Extrem: General: normal to inspection, full ROM, no joint enlargement and no pedal edema Right upper extremity: elbow/forearm abnormal to inspection erythema, olecranon swelling and other (Y shaped surgical wound with dehiscence distally) Psych: Appearance: other (Patient with dementia) Objective Data Vital Signs Cynthia
--- NOTE | 2021-06-09 18:20 | PM.IMPN ---
Progress Note: A&P Assessment and Plan (1) Abscess of hip, left: Code(s): L02.416 - Cutaneous abscess of left lower limb Status: Acute Assessment and Plan: Admit to regular medical floor Bed rest Vitals as per unit protocol Continue level 6 Dysphagia diet Consult to ortho Currently on cefazolin and vancomycin Blood cultures have been ordered and pending at the time of this dictation. Continue to monitor Supportive care (2) Unwitnessed fall: Code(s): R29.6 - Repeated falls Status: Acute Assessment and Plan: Fall precautions (3) Acute pain of left hip: Code(s): M25.552 - Pain in left hip Status: Acute Assessment and Plan: Likely secondary to abscess Pain management Currently receiving Tylenol as needed for pain. (4) Open wound of right elbow: Code(s): S51.001A - Unspecified open wound of right elbow, initial encounter Status: Acute Assessment and Plan: Continue Local Wound care Distal wound dehiscence No purulent discharge CT of elbow is pending (5) Anemia: Code(s): D64.9 - Anemia, unspecified Status: Acute Assessment and Plan: Macrocytic normocytic anemia; check B12 and folate levels. 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 Continue to monitor Follow-up in the outpatient setting (6) Dementia: Code(s): F03.90 - Unspecified dementia without behavioral disturbance Status: Acute Assessment and Plan: Continue mirtazapine and quetiapine Subjective Date/time seen: 06/09/21 15:30 S: patient was seen examined at the bedside. She is pleasantly confused. She denies any complaints. Review of Systems Review of Systems: ROS unobtainable: Yes unobtainable due to medical condition (Dementia) Exam Narrative: Patient is laying in bed. Const: General: cooperative, comfortable, no acute distress, well developed, alert, awake and other (Well-appearing) Nutritional Appearance: underweight Orientation/consciousness: oriented to person HENMT: Head: normal to inspection, normocephalic and atraumatic Ears: hearing grossly normal bilaterally General nose exam: Normal external nose present Face and sinus: normal facial exam Mouth: Yes Normal oral and palatal mucosa present Eyes: General: appearance normal, both eyes and all related structures Alignment and Position: alignment normal Sclera: sclerae normal Pupils: Equal, round and reactive pupils present EOM: EOMs intact bilaterally Neck: Neck: normal visual inspection, full ROM, no lymphadenopathy, supple and no JVD Thyroid: thyroid normal Lymphatic: no lymphadenopathy noted Resp: Effort & Inspection: normal respiratory effort and able to speak in complete sentences Auscultation: clear to auscultation bilaterally, no crackles, no rales, no rhonchi and no wheezes Cardio: Jugular venous distension: no JVD Rate: regular rate Rhythm: regular rhythm Heart sounds: S1 normal heart sound present and S2 normal heart sound present GI: Inspection: normal to inspection : General: Yes deferred Skin: General skin exam: erythema Rashes: no rashes Wounds: wounds noted (Right elbow surgical wound Y shape and wound dehiscence) Neuro: General: oriented to person, CN's II-XI intact bilaterally and Unable to assess gait Cranial nerves: Yes CN's II-XII intact bilaterally and Yes Equal, round and reactive pupils present Cognition (Neuro): abnormal cognition (Cognitive impairment ) Speech: normal speech Gait exam (Neuro): Unable to assess gait Motor exam (neuro): 5/5 motor strength present throughout Extrem: General: normal to inspection, full ROM, no joint enlargement and no pedal edema Right upper extremity: elbow/forearm abnormal to inspection erythema, olecranon swelling and other (Y shaped surgical wound with dehiscence distally) Psych: Appearance: other (Patient with dementia) Objective Data Vital Signs Vital Signs: Vital Signs -
[2021-06-09] MEDS: MIRTAZAPINE 15 MG TABLET PO (21:00)
[2021-06-09 21:45] VITALS: BP 126/67; PULSE 70; RESP 18; TEMP 37.1; O2SAT 97
[2021-06-09 22:05] VITALS: O2SAT 96
[2021-06-10 05:56] VITALS: BP 123/46; PULSE 61; RESP 16; TEMP 36.1; O2SAT 96
[2021-06-10] MEDS: CHOLECALCIFEROL 1,000 UNITS TABLET 1000 UNITS PO (08:30)
[2021-06-10] MEDS: QUEtiapine FUMARATE 12.5 MG TABLET PO ×2 (08:30→17:27)
[2021-06-10] MEDS: DOCUSATE SODIUM 100 MG CAPSULE PO (08:31)
[2021-06-10] MEDS: CALCIUM CARBONATE (OSCAL) 500 MG TABLET PO (08:33)
--- NOTE | 2021-06-10 13:36 | PM.IMPN ---
Progress Note: A&P Assessment and Plan (1) Abscess of hip, left: Code(s): L02.416 - Cutaneous abscess of left lower limb Status: Acute Assessment and Plan: Continue level 6 Dysphagia diet Consult to ortho; no indication for intervention. Currently on cefazolin and vancomycin Blood cultures have been ordered and pending at the time of this dictation. Continue to monitor Supportive care (2) Unwitnessed fall: Code(s): R29.6 - Repeated falls Status: Acute Assessment and Plan: Fall precautions (3) Acute pain of left hip: Code(s): M25.552 - Pain in left hip Status: Acute Assessment and Plan: Likely secondary to abscess Pain management Currently receiving Tylenol as needed for pain. (4) Open wound of right elbow: Code(s): S51.001A - Unspecified open wound of right elbow, initial encounter Status: Acute Assessment and Plan: Continue Local Wound care Distal wound dehiscence No purulent discharge CT of elbow is pending (5) Anemia: Code(s): D64.9 - Anemia, unspecified Status: Acute Assessment and Plan: Macrocytic normocytic anemia; check B12 and folate levels. 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 Continue to monitor Follow-up in the outpatient setting (6) Dementia: Code(s): F03.90 - Unspecified dementia without behavioral disturbance Status: Acute Assessment and Plan: Continue mirtazapine and quetiapine Subjective Date/time seen: 06/10/21 13:36 S: patient was seen examined at the bedside. She is pleasantly confused. She denies any complaints Review of Systems Review of Systems: ROS unobtainable: Yes unobtainable due to medical condition (Dementia) Exam Narrative: Patient is laying in bed. Const: General: cooperative, comfortable, no acute distress, well developed, alert, awake and other (Well-appearing) Nutritional Appearance: underweight Orientation/consciousness: oriented to person HENMT: Head: normal to inspection, normocephalic and atraumatic Ears: hearing grossly normal bilaterally General nose exam: Normal external nose present Face and sinus: normal facial exam Mouth: Yes Normal oral and palatal mucosa present Eyes: General: appearance normal, both eyes and all related structures Alignment and Position: alignment normal Sclera: sclerae normal Pupils: Equal, round and reactive pupils present EOM: EOMs intact bilaterally Neck: Neck: normal visual inspection, full ROM, no lymphadenopathy, supple and no JVD Thyroid: thyroid normal Lymphatic: no lymphadenopathy noted Resp: Effort & Inspection: normal respiratory effort and able to speak in complete sentences Auscultation: clear to auscultation bilaterally, no crackles, no rales, no rhonchi and no wheezes Cardio: Jugular venous distension: no JVD Rate: regular rate Rhythm: regular rhythm Heart sounds: S1 normal heart sound present and S2 normal heart sound present GI: Inspection: normal to inspection : General: Yes deferred Skin: General skin exam: erythema Rashes: no rashes Wounds: wounds noted (Right elbow surgical wound Y shape and wound dehiscence) Neuro: General: oriented to person, CN's II-XI intact bilaterally and Unable to assess gait Cranial nerves: Yes CN's II-XII intact bilaterally and Yes Equal, round and reactive pupils present Cognition (Neuro): abnormal cognition (Cognitive impairment ) Speech: normal speech Gait exam (Neuro): Unable to assess gait Motor exam (neuro): 5/5 motor strength present throughout Extrem: General: normal to inspection, full ROM, no joint enlargement and no pedal edema Right upper extremity: elbow/forearm abnormal to inspection erythema, olecranon swelling and other (Y shaped surgical wound with dehiscence distally) Psych: Appearance: other (Patient with dementia) Objective Data Vital Signs Vital Signs: Vital Signs - 24 hr 06/09/21 14:00 06/09/21 21:45
[2021-06-10] MEDS: SILVERGEL (ELTA) 45 ML 1 APPLIC TOPICAL (13:55)
[2021-06-10 14:00] VITALS: BP 117/74; PULSE 70; RESP 20; TEMP 36.2; O2SAT 98
[2021-06-10] MEDS: SODIUM CHLORIDE 0.9% IV 1,000 ML 65 ML IV CONT (19:05)
[2021-06-10] MEDS: MIRTAZAPINE 15 MG TABLET PO (20:07)
[2021-06-10 21:46] VITALS: BP 121/76; PULSE 66; RESP 16; TEMP 36.3; O2SAT 98
[2021-06-11 06:00] VITALS: BP 118/64; PULSE 62; RESP 16; TEMP 36.6; O2SAT 99
[2021-06-11] MEDS: QUEtiapine FUMARATE 12.5 MG TABLET PO ×2 (08:46→17:25)
[2021-06-11] MEDS: CALCIUM CARBONATE (OSCAL) 500 MG TABLET PO (08:46)
[2021-06-11] MEDS: SILVERGEL (ELTA) 45 ML 1 APPLIC TOPICAL (08:47)
[2021-06-11] MEDS: DOCUSATE SODIUM 100 MG CAPSULE PO (08:47)
[2021-06-11] MEDS: CHOLECALCIFEROL 1,000 UNITS TABLET 1000 UNITS PO (08:47)
[2021-06-11 09:39] LABS: Estimated CRCL calculation 48 ml/min; Estimated Glomerular Filt Rate > 60
[2021-06-11 14:00] VITALS: BP 136/90; PULSE 62; RESP 18; TEMP 35.3; O2SAT 100
[2021-06-11] MEDS: SODIUM CHLORIDE 0.9% IV 1,000 ML 65 ML IV CONT (14:08)
--- NOTE | 2021-06-11 16:14 | PCPTNOTE ---
Nursing states patient has been confused and trying to get out of bed. Attempted to see patient however was unable to appropriately respond to commands and questioning. Will attempt again at a later date.
--- NOTE | 2021-06-11 16:25 | PCNFU ---
Nutrition Follow-Up Complete: Inadequate oral intake related to demenita and poor appetite as evidenced by BMI of 14.9 Goal: Patient to meet estimated nutritional needs. Pt is progressing towards goal Pt current nutrition is Regular/soft and bite sized, L6 diet Last recorded weight is 41.9 kg - stable. Bowel Motility: No new BM reported Labs Reviewed: hgb 8.9, hct 31.4, alb 3.1, Na 136, Cl 109, BUN 18, Cr 0.5, AST 42 Meds Noted: oscal, ancef, colace, seroquel, vancomycin, vitamin D Skin: right elbow laceration, right posterior arm laceration Additional Notes: Unable to visit with pt due to pt being confused. Current nutrition is a regular/soft and bite sized, L6 diet with reported intake of 100% x3, 75%, and 0%. RDN placed orders to add a dietary supplement of Ensure Compact BID to provide an additional 220kcal and 9g of protein to increase caloric intake. Agree with diet orders at this time. Will continue to follow. Monitor labs, medications, weight and oral intake every 3 days.
--- NOTE | 2021-06-11 16:31 | PM.IMPN ---
Progress Note: A&P Assessment and Plan (1) Abscess of hip, left: Code(s): L02.416 - Cutaneous abscess of left lower limb Status: Acute Assessment and Plan: Continue level 6 Dysphagia diet Consult to ortho; no indication for intervention. Continue cefazolin and vancomycin Blood cultures remained negative so far. Continue to monitor Supportive care (2) Unwitnessed fall: Code(s): R29.6 - Repeated falls Status: Acute Assessment and Plan: Physical therapy and occupational therapy. Fall precautions (3) Acute pain of left hip: Code(s): M25.552 - Pain in left hip Status: Acute Assessment and Plan: Likely secondary to abscess Pain management Currently receiving Tylenol as needed for pain. (4) Open wound of right elbow: Code(s): S51.001A - Unspecified open wound of right elbow, initial encounter Status: Acute Assessment and Plan: Continue Local Wound care Distal wound dehiscence No purulent discharge CT of elbow is pending (5) Anemia: Code(s): D64.9 - Anemia, unspecified Status: Acute Assessment and Plan: Macrocytic normocytic anemia; check B12 and folate levels. 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 Continue to monitor Follow-up in the outpatient setting (6) Dementia: Code(s): F03.90 - Unspecified dementia without behavioral disturbance Status: Acute Assessment and Plan: Continue mirtazapine and quetiapine Subjective Date/time seen: 06/11/21 16:15 S: Patient was seen examined at the bedside. She is currently confused. She did not seem to be in any distress. Review of Systems Review of Systems: ROS unobtainable: Yes unobtainable due to medical condition (Dementia) Exam Narrative: Patient is laying in bed. Const: General: cooperative, comfortable, no acute distress, well developed, alert, awake and other (Well-appearing) Nutritional Appearance: underweight Orientation/consciousness: oriented to person HENMT: Head: normal to inspection, normocephalic and atraumatic Ears: hearing grossly normal bilaterally General nose exam: Normal external nose present Face and sinus: normal facial exam Mouth: Yes Normal oral and palatal mucosa present Eyes: General: appearance normal, both eyes and all related structures Alignment and Position: alignment normal Sclera: sclerae normal Pupils: Equal, round and reactive pupils present EOM: EOMs intact bilaterally Neck: Neck: normal visual inspection, full ROM, no lymphadenopathy, supple and no JVD Thyroid: thyroid normal Lymphatic: no lymphadenopathy noted Resp: Effort & Inspection: normal respiratory effort and able to speak in complete sentences Auscultation: clear to auscultation bilaterally, no crackles, no rales, no rhonchi and no wheezes Cardio: Jugular venous distension: no JVD Rate: regular rate Rhythm: regular rhythm Heart sounds: S1 normal heart sound present and S2 normal heart sound present GI: Inspection: normal to inspection : General: Yes deferred Skin: General skin exam: erythema Rashes: no rashes Wounds: wounds noted (Right elbow surgical wound Y shape and wound dehiscence) Neuro: General: oriented to person, CN's II-XI intact bilaterally and Unable to assess gait Cranial nerves: Yes CN's II-XII intact bilaterally and Yes Equal, round and reactive pupils present Cognition (Neuro): abnormal cognition (Cognitive impairment ) Speech: normal speech Gait exam (Neuro): Unable to assess gait Motor exam (neuro): 5/5 motor strength present throughout Extrem: General: normal to inspection, full ROM, no joint enlargement and no pedal edema Right upper extremity: elbow/forearm abnormal to inspection erythema, olecranon swelling and other (Y shaped surgical wound with dehiscence distally) Psych: Appearance: other (Patient with dementia) Objective Data Vital Signs Vital Signs: Vital Signs - 24 hr 06/10/21 2
[2021-06-11] MEDS: MIRTAZAPINE 15 MG TABLET PO (20:13)
[2021-06-11] MEDS: ACETAMINOPHEN 325 MG TABLET PO (20:50)
[2021-06-11 22:00] VITALS: BP 122/69; PULSE 68; RESP 12; TEMP 36.2; O2SAT 93
[2021-06-12 00:02] LABS: Vancomycin Trough 6.5 ug/mL (10.0-20.0)
[2021-06-12 06:00] VITALS: BP 131/75; PULSE 71; RESP 18; TEMP 35.8; O2SAT 97
[2021-06-12 07:03] LABS: Estimated CRCL calculation 41 ml/min; Estimated Glomerular Filt Rate > 60
[2021-06-12] MEDS: SILVERGEL (ELTA) 45 ML 1 APPLIC TOPICAL (08:57)
[2021-06-12] MEDS: CALCIUM CARBONATE (OSCAL) 500 MG TABLET PO (08:57)
[2021-06-12] MEDS: DOCUSATE SODIUM 100 MG CAPSULE PO (08:57)
[2021-06-12] MEDS: QUEtiapine FUMARATE 12.5 MG TABLET PO ×2 (08:57→17:06)
[2021-06-12] MEDS: CHOLECALCIFEROL 1,000 UNITS TABLET 1000 UNITS PO (08:57)
[2021-06-12 09:01] VITALS: O2SAT 96
[2021-06-12] MEDS: SODIUM CHLORIDE 0.9% IV 1,000 ML 65 ML IV CONT (09:02)
[2021-06-12 10:10] LABS: Basophils Absolute Auto 0.1 K/mm3 (0.0-0.1); Eosinophils Absolute Auto 0.1 K/mm3 (0-0.3); Eosinophils Percent Auto 2.7 % (0-4.4); Hematocrit 38.4 % (37.0-47.0); Hemoglobin 11.5 g/dL (12.0-15.0); Immature Granulocyte Absolute 0.02 K/mm3 (0.00-0.031); Immature Granulocyte Percent A 0.4 % (0-0.5); Lymphocytes Absolute Auto 1.27 K/mm3 (0.9-3.2); Lymphocytes Percent Auto 24.3 % (18.3-44.2); Mean Corpuscular HGB Conc 29.9 g/dl (32-36); Mean Corpuscular Hemoglobin 32.5 pg (26-34); Mean Corpuscular Volume 108.5 fl (80-100); Mean Platelet Volume 9.5 fl (7.4-10.4); Monocytes Absolute Auto 0.4 K/mm3 (0.1-0.6); Neutrophils Absolute Auto 3.3 K/mm3 (1.3-6.7); Neutrophils Percent Auto 63.6 % (45.5-73.1); Platelet Count Result 273 k/mm3 (150-375); Red Blood Count 3.54 M/mm3 (4.2-5.4); Red Cell Distribution Width 13.1 % (11.5-14.5); White Blood Count 5.2 K/mm3 (4.5-10.0)
--- NOTE | 2021-06-12 13:07 | PM.IMPN ---
Progress Note: A&P Assessment and Plan (1) Abscess of hip, left: Code(s): L02.416 - Cutaneous abscess of left lower limb Status: Acute Assessment and Plan: Continue level 6 Dysphagia diet Consult to ortho; no indication for intervention. Continue cefazolin and vancomycin Blood cultures remained negative so far. Continue to monitor Supportive care (2) Unwitnessed fall: Code(s): R29.6 - Repeated falls Status: Acute Assessment and Plan: Physical therapy and occupational therapy. Fall precautions (3) Acute pain of left hip: Code(s): M25.552 - Pain in left hip Status: Acute Assessment and Plan: Likely secondary to abscess Pain management Currently receiving Tylenol as needed for pain. (4) Open wound of right elbow: Code(s): S51.001A - Unspecified open wound of right elbow, initial encounter Status: Acute Assessment and Plan: Continue Local Wound care Distal wound dehiscence No purulent discharge CT of elbow is pending (5) Anemia: Code(s): D64.9 - Anemia, unspecified Status: Acute Assessment and Plan: Macrocytic normocytic anemia; check B12 and folate levels. 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 Continue to monitor Follow-up in the outpatient setting (6) Dementia: Code(s): F03.90 - Unspecified dementia without behavioral disturbance Status: Acute Assessment and Plan: Continue mirtazapine and quetiapine Subjective Date/time seen: 06/12/21 13:07 S: patient was seen and examined at the bedside. She is eating well with assistance. Review of Systems Review of Systems: ROS unobtainable: Yes unobtainable due to medical condition Exam Const: General: cooperative, comfortable, no acute distress, well developed, alert, awake, confusion (dementia) and other (Well-appearing) Nutritional Appearance: thin and underweight Orientation/consciousness: oriented to person and confusion (dementia) HENMT: Head: normal to inspection, normocephalic and atraumatic Ears: hearing grossly normal bilaterally General nose exam: Normal external nose present Face and sinus: normal facial exam and face symmetric Mouth: Yes Normal oral and palatal mucosa present, Yes lip normal, Yes oropharynx normal and Yes moist mucous membranes Eyes: General: appearance normal, both eyes and all related structures Alignment and Position: alignment normal Sclera: sclerae normal Pupils: Equal, round and reactive pupils present EOM: EOMs intact bilaterally Neck: Neck: normal visual inspection, full ROM, no lymphadenopathy, supple and no JVD Thyroid: thyroid normal Lymphatic: no lymphadenopathy noted Resp: Effort & Inspection: normal respiratory effort, able to speak in complete sentences and no retractions Auscultation: clear to auscultation bilaterally, no crackles, no rales, no rhonchi and no wheezes Cardio: Jugular venous distension: no JVD Rate: regular rate Rhythm: regular rhythm Heart sounds: S1 normal heart sound present, S2 normal heart sound present and no murmurs GI: Inspection: normal to inspection and non-distended Auscultation: normal bowel sounds Rectal Exam: deferred : General: Yes deferred Skin: General skin exam: normal color and erythema Rashes: no rashes Wounds: wounds noted (Right elbow surgical wound Y shape and wound dehiscence) Neuro: General: oriented to person, moves all extremities, no focal motor deficits, CN's II-XI intact bilaterally, confusion (dementia) and Unable to assess gait Cranial nerves: Yes CN's II-XII intact bilaterally and Yes Equal, round and reactive pupils present Cognition (Neuro): abnormal cognition (Cognitive impairment ) Speech: normal speech Gait exam (Neuro): Unable to assess gait Motor exam (neuro): 5/5 motor strength present throughout Extrem: General: normal to inspection, full ROM, capillary refill normal, no joint enlargement, no pedal edema, no e
[2021-06-12 14:00] VITALS: BP 145/67; PULSE 77; RESP 20; TEMP 36.5; O2SAT 98
[2021-06-12] MEDS: MIRTAZAPINE 15 MG TABLET PO (21:16)
[2021-06-12 22:00] VITALS: BP 121/71; PULSE 78; RESP 20; TEMP 36.5; O2SAT 97
[2021-06-13 06:36] LABS: Basophils Percent Auto 0.2 % (0.2-1.2); Eosinophils Absolute Auto 0.1 K/mm3 (0-0.3); Eosinophils Percent Auto 2.1 % (0-4.4); Hematocrit 32.4 % (37.0-47.0); Hemoglobin 10.4 g/dL (12.0-15.0); Immature Granulocyte Absolute 0.02 K/mm3 (0.00-0.031); Immature Granulocyte Percent A 0.4 % (0-0.5); Lymphocytes Absolute Auto 1.42 K/mm3 (0.9-3.2); Lymphocytes Percent Auto 24.9 % (18.3-44.2); Mean Corpuscular HGB Conc 32.1 g/dl (32-36); Mean Corpuscular Hemoglobin 31.9 pg (26-34); Mean Corpuscular Volume 99.4 fl (80-100); Mean Platelet Volume 8.9 fl (7.4-10.4); Monocytes Absolute Auto 0.5 K/mm3 (0.1-0.6); Monocytes Percent Auto 8.9 % (2.6-8.5); Neutrophils Absolute Auto 3.6 K/mm3 (1.3-6.7); Neutrophils Percent Auto 63.5 % (45.5-73.1); Platelet Count Result 314 k/mm3 (150-375); Red Blood Count 3.26 M/mm3 (4.2-5.4); Red Cell Distribution Width 12.9 % (11.5-14.5); White Blood Count 5.7 K/mm3 (4.5-10.0)
[2021-06-13] MEDS: SODIUM CHLORIDE 0.9% IV 1,000 ML 65 ML IV CONT (07:00)
[2021-06-13] MEDS: QUEtiapine FUMARATE 12.5 MG TABLET PO ×2 (08:30→17:04)
[2021-06-13] MEDS: SILVERGEL (ELTA) 45 ML 1 APPLIC TOPICAL (08:30)
[2021-06-13] MEDS: CALCIUM CARBONATE (OSCAL) 500 MG TABLET PO (08:30)
[2021-06-13] MEDS: ACETAMINOPHEN 500 MG TABLET 1000 MG PO (08:30)
[2021-06-13] MEDS: CHOLECALCIFEROL 1,000 UNITS TABLET 1000 UNITS PO (08:30)
[2021-06-13] MEDS: DOCUSATE SODIUM 100 MG CAPSULE PO (08:30)
[2021-06-13 09:27] LABS: Basophils Percent Auto 0.4 % (0.2-1.2); Eosinophils Absolute Auto 0.1 K/mm3 (0-0.3); Eosinophils Percent Auto 1.8 % (0-4.4); Hematocrit 30.1 % (37.0-47.0); Hemoglobin 9.7 g/dL (12.0-15.0); Immature Granulocyte Absolute 0.01 K/mm3 (0.00-0.031); Immature Granulocyte Percent A 0.2 % (0-0.5); Lymphocytes Absolute Auto 1.01 K/mm3 (0.9-3.2); Lymphocytes Percent Auto 22.1 % (18.3-44.2); Mean Corpuscular HGB Conc 32.2 g/dl (32-36); Mean Corpuscular Hemoglobin 32.4 pg (26-34); Mean Corpuscular Volume 100.7 fl (80-100); Mean Platelet Volume 8.8 fl (7.4-10.4); Monocytes Absolute Auto 0.4 K/mm3 (0.1-0.6); Neutrophils Percent Auto 66.5 % (45.5-73.1); Platelet Count Result 272 k/mm3 (150-375); Red Blood Count 2.99 M/mm3 (4.2-5.4); White Blood Count 4.6 K/mm3 (4.5-10.0)
[2021-06-13 09:50] LABS: Anion Gap 4 mmol/L (8-16); Blood Urea Nitrogen 15 mg/dL (7-17); Calcium 8.3 mg/dL (8.4-10.2); Carbon Dioxide 28 mmol/L (22-30); Chloride 105 mmol/L (98-107); Estimated CRCL calculation 41 ml/min; Estimated Glomerular Filt Rate > 60; Glucose 79 mg/dL (65-110); Potassium 3.8 mmol/L (3.4-5.0); Sodium 137 mmol/L (137-145)
--- NOTE | 2021-06-13 13:00 | PM.IMPN ---
Progress Note: A&P Assessment and Plan (1) Abscess of hip, left: Code(s): L02.416 - Cutaneous abscess of left lower limb Status: Acute Assessment and Plan: Continue level 6 Dysphagia diet Consult to ortho; no indication for intervention. Continue cefazolin and vancomycin Blood cultures remained negative so far. Continue to monitor Supportive care (2) Unwitnessed fall: Code(s): R29.6 - Repeated falls Status: Acute Assessment and Plan: Physical therapy and occupational therapy. Fall precautions (3) Acute pain of left hip: Code(s): M25.552 - Pain in left hip Status: Acute Assessment and Plan: Likely secondary to abscess Pain management Currently receiving Tylenol as needed for pain. (4) Open wound of right elbow: Code(s): S51.001A - Unspecified open wound of right elbow, initial encounter Status: Acute Assessment and Plan: Continue Local Wound care Distal wound dehiscence No purulent discharge CT of elbow is pending (5) Anemia: Code(s): D64.9 - Anemia, unspecified Status: Acute Assessment and Plan: Macrocytic normocytic anemia; check B12 and folate levels. 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 Continue to monitor Follow-up in the outpatient setting (6) Dementia: Code(s): F03.90 - Unspecified dementia without behavioral disturbance Status: Acute Assessment and Plan: Continue mirtazapine and quetiapine Subjective Date/time seen: 06/13/21 13:00 s: Patient was seen and examined at the bedside. She is completely confused, and is speaking to people were not present. Her appetite is robust; her oral intake has been adequate when she is fed with assistance. Review of Systems Review of Systems: ROS unobtainable: Yes unobtainable due to medical condition Neurologic: Reports confusion (dementia) Psychiatric: Psychiatric: Reports confusion (dementia) Exam Const: General: cooperative, comfortable, no acute distress, well developed, alert, awake, confusion (dementia) and other (Well-appearing) Nutritional Appearance: thin and underweight Orientation/consciousness: oriented to person and confusion (dementia) HENMT: Head: normal to inspection, normocephalic and atraumatic Ears: hearing grossly normal bilaterally General nose exam: Normal external nose present Face and sinus: normal facial exam and face symmetric Mouth: Yes Normal oral and palatal mucosa present, Yes lip normal, Yes oropharynx normal and Yes moist mucous membranes Eyes: General: appearance normal, both eyes and all related structures Alignment and Position: alignment normal Sclera: sclerae normal Pupils: Equal, round and reactive pupils present EOM: EOMs intact bilaterally Neck: Neck: normal visual inspection, full ROM, no lymphadenopathy, supple and no JVD Thyroid: thyroid normal Lymphatic: no lymphadenopathy noted Resp: Effort & Inspection: normal respiratory effort, able to speak in complete sentences and no retractions Auscultation: clear to auscultation bilaterally, no crackles, no rales, no rhonchi and no wheezes Cardio: Jugular venous distension: no JVD Rate: regular rate Rhythm: regular rhythm Heart sounds: S1 normal heart sound present, S2 normal heart sound present and no murmurs GI: Inspection: normal to inspection and non-distended Auscultation: normal bowel sounds Rectal Exam: deferred : General: Yes deferred Skin: General skin exam: normal color and erythema Rashes: no rashes Wounds: wounds noted (Right elbow surgical wound Y shape and wound dehiscence) Neuro: General: oriented to person, moves all extremities, no focal motor deficits, CN's II-XI intact bilaterally, confusion (dementia) and Unable to assess gait Cranial nerves: Yes CN's II-XII intact bilaterally and Yes Equal, round and reactive pupils present Cognition (Neuro): abnormal cognition (Cognitive impairment ) Speech:
[2021-06-13 13:54] VITALS: BP 157/61; PULSE 80; RESP 20; TEMP 36.7; O2SAT 100
--- NOTE | 2021-06-13 14:16 | PCNFU ---
Nutrition Follow-Up Complete: Inadequate oral intake related to dementia and poor appetite as evidenced by BMI of 14.9 Goal: Patient to meet estimated nutritional needs. Pt is progressing towards goal Pt current nutrition is Regular/soft and bite sized, L6 and dietary supplement Last recorded weight is 41.9 kg, stable - Recommend reweighing prior to D/C. Bowel Motility: No new BM reported Labs Reviewed: hgb 9.7, hct 30.1, Ca 8.3, Cr 0.6 Meds Noted: oscal, ancef, colace, seroquel, vancomycin, vitamin D Skin: right elbow laceration, right posterior arm laceration Additional Notes: Unable to visit with pt due to pt being confused. Current nutrition is a regular/soft and bite sized, L6 diet and dietary supplement of Ensure Compact BID providing an additional 220kcal and 9g of protein to increase caloric intake. Reported intake is 100% x5. Pt appears to be tolerating current diet orders with adequate intake. Agree with diet orders at this time. Will continue to follow. Monitor labs, medications, weight and oral intake every 7 days.
[2021-06-13 22:00] VITALS: BP 104/89; PULSE 82; RESP 18; TEMP 36.3; O2SAT 95
[2021-06-14] MEDS: MIRTAZAPINE 15 MG TABLET PO ×2 (00:29→21:18)
[2021-06-14 05:42] VITALS: BP 150/89; PULSE 88; RESP 16; TEMP 36.1; O2SAT 98
[2021-06-14] MEDS: SODIUM CHLORIDE 0.9% IV 1,000 ML 65 ML IV CONT (06:15)
[2021-06-14 06:20] LABS: Basophils Percent Auto 0.6 % (0.2-1.2); Eosinophils Absolute Auto 0.2 K/mm3 (0-0.3); Eosinophils Percent Auto 3.3 % (0-4.4); Hematocrit 30.7 % (37.0-47.0); Immature Granulocyte Absolute 0.01 K/mm3 (0.00-0.031); Immature Granulocyte Percent A 0.2 % (0-0.5); Lymphocytes Absolute Auto 1.34 K/mm3 (0.9-3.2); Lymphocytes Percent Auto 24.9 % (18.3-44.2); Mean Corpuscular HGB Conc 32.6 g/dl (32-36); Mean Corpuscular Hemoglobin 32.1 pg (26-34); Mean Corpuscular Volume 98.4 fl (80-100); Mean Platelet Volume 8.8 fl (7.4-10.4); Monocytes Absolute Auto 0.5 K/mm3 (0.1-0.6); Monocytes Percent Auto 9.5 % (2.6-8.5); Neutrophils Absolute Auto 3.3 K/mm3 (1.3-6.7); Neutrophils Percent Auto 61.5 % (45.5-73.1); Platelet Count Result 319 k/mm3 (150-375); Red Blood Count 3.12 M/mm3 (4.2-5.4); Red Cell Distribution Width 13.1 % (11.5-14.5); White Blood Count 5.4 K/mm3 (4.5-10.0)
[2021-06-14 06:38] LABS: Anion Gap 5 mmol/L (8-16); Blood Urea Nitrogen 16 mg/dL (7-17); Calcium 8.6 mg/dL (8.4-10.2); Carbon Dioxide 28 mmol/L (22-30); Chloride 106 mmol/L (98-107); Estimated CRCL calculation 35 ml/min; Estimated Glomerular Filt Rate > 60; Glucose 77 mg/dL (65-110); Sodium 139 mmol/L (137-145)
[2021-06-14 06:53] LABS: Vancomycin Trough 10.4 ug/mL (10.0-20.0)
[2021-06-14 07:14] LABS: Red Blood Cell Folate 653 ng/mL RBC (>280)
[2021-06-14 08:00] VITALS: PULSE 88; RESP 16; O2SAT 98
[2021-06-14] MEDS: CALCIUM CARBONATE (OSCAL) 500 MG TABLET PO (09:46)
[2021-06-14] MEDS: QUEtiapine FUMARATE 12.5 MG TABLET PO ×2 (09:47→17:10)
[2021-06-14] MEDS: CHOLECALCIFEROL 1,000 UNITS TABLET 1000 UNITS PO (09:47)
[2021-06-14] MEDS: SILVERGEL (ELTA) 45 ML 1 APPLIC TOPICAL (09:47)
[2021-06-14] MEDS: DOCUSATE SODIUM 100 MG CAPSULE PO (09:47)
--- NOTE | 2021-06-14 11:17 | PCPTNOTE ---
Pt has refused therapy on multiple attempts. Per [employer] and MD pt is not appropriate for skilled therapy services. Will DC PT services at this time.
[2021-06-14 14:00] VITALS: BP 120/73; PULSE 99; RESP 20; TEMP 37.2; O2SAT 100
--- NOTE | 2021-06-14 14:49 | PM.IMPN ---
Progress Note: A&P Assessment and Plan (1) Abscess of hip, left: Code(s): L02.416 - Cutaneous abscess of left lower limb Status: Acute Assessment and Plan: Continue level 6 Dysphagia diet Consult to ortho; no indication for intervention. Continue cefazolin and vancomycin Blood cultures remained negative so far. Continue to monitor Supportive care (2) Unwitnessed fall: Code(s): R29.6 - Repeated falls Status: Acute Assessment and Plan: Physical therapy and occupational therapy. Fall precautions (3) Acute pain of left hip: Code(s): M25.552 - Pain in left hip Status: Acute Assessment and Plan: Likely secondary to abscess Pain management Currently receiving Tylenol as needed for pain. (4) Open wound of right elbow: Code(s): S51.001A - Unspecified open wound of right elbow, initial encounter Status: Acute Assessment and Plan: Continue Local Wound care Distal wound dehiscence No purulent discharge CT of elbow is pending (5) Anemia: Code(s): D64.9 - Anemia, unspecified Status: Acute Assessment and Plan: Macrocytic normocytic anemia; check B12 and folate levels. 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 Continue to monitor Follow-up in the outpatient setting (6) Dementia: Code(s): F03.90 - Unspecified dementia without behavioral disturbance Status: Acute Assessment and Plan: Continue mirtazapine and quetiapine Subjective Date/time seen: 06/14/21 14:49 S: PAtient examined at the bedside. She is moving all limbs and speaking to people who aren't there. No complaints. She does not appear to be in distress. Review of Systems Review of Systems: ROS unobtainable: Yes unobtainable due to medical condition Neurologic: Reports confusion (dementia) Psychiatric: Psychiatric: Reports confusion (dementia) Exam Const: General: cooperative, comfortable, no acute distress, well developed, alert, awake, confusion (dementia) and other (Well-appearing) Nutritional Appearance: thin and underweight Orientation/consciousness: oriented to person and confusion (dementia) HENMT: Head: normal to inspection, normocephalic and atraumatic Ears: hearing grossly normal bilaterally General nose exam: Normal external nose present Face and sinus: normal facial exam and face symmetric Mouth: Yes Normal oral and palatal mucosa present, Yes lip normal, Yes oropharynx normal and Yes moist mucous membranes Eyes: General: appearance normal, both eyes and all related structures Alignment and Position: alignment normal Sclera: sclerae normal Pupils: Equal, round and reactive pupils present EOM: EOMs intact bilaterally Neck: Neck: normal visual inspection, full ROM, no lymphadenopathy, supple and no JVD Thyroid: thyroid normal Lymphatic: no lymphadenopathy noted Resp: Effort & Inspection: normal respiratory effort, able to speak in complete sentences and no retractions Auscultation: clear to auscultation bilaterally, no crackles, no rales, no rhonchi and no wheezes Cardio: Jugular venous distension: no JVD Rate: regular rate Rhythm: regular rhythm Heart sounds: S1 normal heart sound present, S2 normal heart sound present and no murmurs GI: Inspection: normal to inspection and non-distended Auscultation: normal bowel sounds Rectal Exam: deferred : General: Yes deferred Skin: General skin exam: normal color and erythema Rashes: no rashes Wounds: wounds noted (Right elbow surgical wound Y shape and wound dehiscence) Neuro: General: oriented to person, moves all extremities, no focal motor deficits, CN's II-XI intact bilaterally, confusion (dementia) and Unable to assess gait Cranial nerves: Yes CN's II-XII intact bilaterally and Yes Equal, round and reactive pupils present Cognition (Neuro): abnormal cognition (Cognitive impairment ) Speech: normal speech Gait exam (Neuro): Unable to assess gait Motor
[2021-06-14 22:00] VITALS: BP 167/81; PULSE 95; RESP 22; TEMP 36.3; O2SAT 95
[2021-06-15] MEDS: SODIUM CHLORIDE 0.9% IV 1,000 ML 65 ML IV CONT (05:28)
[2021-06-15 05:49] LABS: Basophils Percent Auto 0.4 % (0.2-1.2); Eosinophils Absolute Auto 0.1 K/mm3 (0-0.3); Eosinophils Percent Auto 2.9 % (0-4.4); Hematocrit 30.5 % (37.0-47.0); Hemoglobin 9.3 g/dL (12.0-15.0); Immature Granulocyte Absolute 0.01 K/mm3 (0.00-0.031); Immature Granulocyte Percent A 0.2 % (0-0.5); Lymphocytes Absolute Auto 1.12 K/mm3 (0.9-3.2); Lymphocytes Percent Auto 23.6 % (18.3-44.2); Mean Corpuscular HGB Conc 30.5 g/dl (32-36); Mean Corpuscular Hemoglobin 31.7 pg (26-34); Mean Corpuscular Volume 104.1 fl (80-100); Mean Platelet Volume 9.1 fl (7.4-10.4); Monocytes Absolute Auto 0.6 K/mm3 (0.1-0.6); Monocytes Percent Auto 11.8 % (2.6-8.5); Neutrophils Absolute Auto 2.9 K/mm3 (1.3-6.7); Neutrophils Percent Auto 61.1 % (45.5-73.1); Platelet Count Result 282 k/mm3 (150-375); Red Blood Count 2.93 M/mm3 (4.2-5.4); Red Cell Distribution Width 13.2 % (11.5-14.5); White Blood Count 4.8 K/mm3 (4.5-10.0)
[2021-06-15 06:00] VITALS: BP 134/53; PULSE 73; RESP 18; TEMP 36.4; O2SAT 97
[2021-06-15 06:02] LABS: Anion Gap 7 mmol/L (8-16); Blood Urea Nitrogen 16 mg/dL (7-17); Calcium 8.4 mg/dL (8.4-10.2); Carbon Dioxide 28 mmol/L (22-30); Chloride 104 mmol/L (98-107); Estimated CRCL calculation 41 ml/min; Estimated Glomerular Filt Rate > 60; Glucose 87 mg/dL (65-110); Potassium 3.8 mmol/L (3.4-5.0); Sodium 139 mmol/L (137-145)
[2021-06-15 08:00] VITALS: PULSE 73; RESP 18; O2SAT 97
--- NOTE | 2021-06-15 09:07 | PM.IMPN ---
Progress Note: A&P Assessment and Plan (1) Abscess of hip, left: Code(s): L02.416 - Cutaneous abscess of left lower limb Status: Acute Assessment and Plan: Consult to ortho; no indication for intervention. Continue cefazolin and vancomycin Blood cultures remained negative so far. Continue to monitor Supportive care Patient may be discharged to [facility]. (2) Unwitnessed fall: Code(s): R29.6 - Repeated falls Status: Acute Assessment and Plan: Patient is not amenable to Physical therapy and occupational therapy, due to lack of insight. Continue Fall precautions (3) Acute pain of left hip: Code(s): M25.552 - Pain in left hip Status: Acute Assessment and Plan: Likely secondary to abscess Pain management Currently receiving Tylenol as needed for pain. (4) Open wound of right elbow: Code(s): S51.001A - Unspecified open wound of right elbow, initial encounter Status: Acute Assessment and Plan: Continue Local Wound care Distal wound dehiscence No purulent discharge CT of elbow: No collection. (5) Anemia: Code(s): D64.9 - Anemia, unspecified Status: Acute Assessment and Plan: Macrocytic normocytic anemia; check B12 and folate levels. 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 Continue to monitor Follow-up in the outpatient setting (6) Dementia: Code(s): F03.90 - Unspecified dementia without behavioral disturbance Status: Acute Assessment and Plan: Continue mirtazapine and quetiapine. Subjective Date/time seen: 06/15/21 09:07 S: Patient was seen examined at the bedside. She is completely confused. Appetite is robust. She does not appear to be in any distress. Review of Systems Review of Systems: ROS unobtainable: Yes unobtainable due to medical condition Neurologic: Reports confusion (dementia) Psychiatric: Psychiatric: Reports confusion (dementia) Exam Const: General: cooperative, comfortable, no acute distress, well developed, alert, awake, confusion (dementia) and other (Well-appearing) Nutritional Appearance: thin and underweight Orientation/consciousness: oriented to person and confusion (dementia) HENMT: Head: normal to inspection, normocephalic and atraumatic Ears: hearing grossly normal bilaterally General nose exam: Normal external nose present Face and sinus: normal facial exam and face symmetric Mouth: Yes Normal oral and palatal mucosa present, Yes lip normal, Yes oropharynx normal and Yes moist mucous membranes Eyes: General: appearance normal, both eyes and all related structures Alignment and Position: alignment normal Sclera: sclerae normal Pupils: Equal, round and reactive pupils present EOM: EOMs intact bilaterally Neck: Neck: normal visual inspection, full ROM, no lymphadenopathy, supple and no JVD Thyroid: thyroid normal Lymphatic: no lymphadenopathy noted Resp: Effort & Inspection: normal respiratory effort, able to speak in complete sentences and no retractions Auscultation: clear to auscultation bilaterally, no crackles, no rales, no rhonchi and no wheezes Cardio: Jugular venous distension: no JVD Rate: regular rate Rhythm: regular rhythm Heart sounds: S1 normal heart sound present, S2 normal heart sound present and no murmurs GI: Inspection: normal to inspection and non-distended Auscultation: normal bowel sounds Rectal Exam: deferred : General: Yes deferred Skin: General skin exam: normal color and erythema Rashes: no rashes Wounds: wounds noted (Right elbow surgical wound Y shape and wound dehiscence) Neuro: General: oriented to person, moves all extremities, no focal motor deficits, CN's II-XI intact bilaterally, confusion (dementia) and Unable to assess gait Cranial nerves: Yes CN's II-XII intact bilaterally and Yes Equal, round and reactive pupils present Cognition (Neuro): abnormal cognition (Cognitive impairment ) Speech: normal
[2021-06-15] MEDS: SILVERGEL (ELTA) 45 ML 1 APPLIC TOPICAL (09:18)
[2021-06-15] MEDS: CHOLECALCIFEROL 1,000 UNITS TABLET 1000 UNITS PO (09:18)
[2021-06-15] MEDS: DOCUSATE SODIUM 100 MG CAPSULE PO (09:18)
[2021-06-15] MEDS: CALCIUM CARBONATE (OSCAL) 500 MG TABLET PO (09:18)
[2021-06-15] MEDS: QUEtiapine FUMARATE 12.5 MG TABLET PO ×2 (09:18→17:59)
[2021-06-15 14:20] VITALS: O2SAT 96
[2021-06-15 14:49] VITALS: BP 130/83; PULSE 86; RESP 12; TEMP 36.6; O2SAT 97
[2021-06-15] MEDS: MIRTAZAPINE 15 MG TABLET PO (21:00)
[2021-06-15 21:42] VITALS: BP 100/58; PULSE 62; RESP 16; TEMP 36.2; O2SAT 98
[2021-06-16] VITALS: O2SAT 95
[2021-06-16 06:00] VITALS: BP 102/46; PULSE 67; RESP 16; TEMP 35.9; O2SAT 97
[2021-06-16 06:05] LABS: Basophils Percent Auto 0.5 % (0.2-1.2); Eosinophils Absolute Auto 0.2 K/mm3 (0-0.3); Eosinophils Percent Auto 4.4 % (0-4.4); Hematocrit 29.2 % (37.0-47.0); Hemoglobin 9.4 g/dL (12.0-15.0); Immature Granulocyte Absolute 0.01 K/mm3 (0.00-0.031); Immature Granulocyte Percent A 0.2 % (0-0.5); Lymphocytes Absolute Auto 1.01 K/mm3 (0.9-3.2); Lymphocytes Percent Auto 24.9 % (18.3-44.2); Mean Corpuscular HGB Conc 32.2 g/dl (32-36); Mean Corpuscular Hemoglobin 32.2 pg (26-34); Monocytes Absolute Auto 0.5 K/mm3 (0.1-0.6); Monocytes Percent Auto 13.1 % (2.6-8.5); Neutrophils Absolute Auto 2.3 K/mm3 (1.3-6.7); Neutrophils Percent Auto 56.9 % (45.5-73.1); Platelet Count Result 298 k/mm3 (150-375); Red Blood Count 2.92 M/mm3 (4.2-5.4); Red Cell Distribution Width 13.2 % (11.5-14.5); White Blood Count 4.1 K/mm3 (4.5-10.0)
[2021-06-16 06:17] LABS: Anion Gap 1 mmol/L (8-16); Blood Urea Nitrogen 14 mg/dL (7-17); Calcium 8.4 mg/dL (8.4-10.2); Carbon Dioxide 31 mmol/L (22-30); Chloride 106 mmol/L (98-107); Estimated CRCL calculation 41 ml/min; Estimated Glomerular Filt Rate > 60; Glucose 83 mg/dL (65-110); Potassium 3.6 mmol/L (3.4-5.0); Sodium 138 mmol/L (137-145)
[2021-06-16 07:36] LABS: Iron 49 ug/dL (37-170)
[2021-06-16 07:46] LABS: Percent Iron Saturation 24 % (20-50)
[2021-06-16 08:00] VITALS: PULSE 67; RESP 16; O2SAT 97
[2021-06-16] MEDS: QUEtiapine FUMARATE 12.5 MG TABLET PO ×2 (08:31→16:57)
[2021-06-16] MEDS: CALCIUM CARBONATE (OSCAL) 500 MG TABLET PO (08:31)
[2021-06-16] MEDS: SILVERGEL (ELTA) 45 ML 1 APPLIC TOPICAL (08:31)
[2021-06-16] MEDS: DOCUSATE SODIUM 100 MG CAPSULE PO (08:31)
[2021-06-16] MEDS: CHOLECALCIFEROL 1,000 UNITS TABLET 1000 UNITS PO (08:31)
[2021-06-16 08:44] LABS: Folic Acid 9.1 ng/mL (2.76->20)
--- NOTE | 2021-06-16 11:59 | PM.DS ---
DS: Admitting Diagnosis Discharge Date 06/16/21 Admitting Diagnosis Left hip pain after a fall DS: Discharge Diagnosis Discharge Diagnosis (1) Localized swelling, mass and lump, left lower limb: Code(s): R22.42 - Localized swelling, mass and lump, left lower limb Status: Acute (2) Unwitnessed fall: Code(s): R29.6 - Repeated falls Status: Acute (3) Acute pain of left hip: Code(s): M25.552 - Pain in left hip Status: Acute (4) Open wound of right elbow: Code(s): S51.001A - Unspecified open wound of right elbow, initial encounter Status: Acute (5) Anemia: Code(s): D64.9 - Anemia, unspecified Status: Acute (6) Dementia: Code(s): F03.90 - Unspecified dementia without behavioral disturbance Status: Acute DS: Summary Hospital Course Reason for hospitalization: 80yo female with dementia here for left hip pain after an unwitnessed fall. Please see H&P for details. Hospital Course: Patient was brought to the emergency room for evaluation. Her white count was essentially normal and remained normal throughout her hospital course. Hemoglobin was 8.8 but this actually improved and remained stable in the 9-10 range. She did not receive any transfusions. CT the brain showed no acute findings. Chest x-ray was clear. Hip x-ray showed no fracture. CT of the cervical spine shows unchanged age-indeterminate mild T3 compression fracture that was visualized earlier in month. As such not felt to be related to her unwitnessed fall. The hip CT showed soft tissue swelling and subcutaneous edema in the subcutaneous tissue posterior the left greater trochanter. CT of the right elbow showed no acute findings. CRP was slightly elevated but lactic acid was normal. Her CMP was unremarkable. She had mild elevation of BUN possibly related to dehydration. B12 levels normal. Urine was clear. COVID test was negative. She was started on IV abx for possible abscess. General surgeon was consulted but they felt however that given the recent trauma and no clinical evidence of infection, that the fluid collection was more like the hematoma and not an abscess. Patient was continued on IV antibiotics to complete a 7 day course by the hospitalist. She did well. She has a to be discharged on 06/16/2021. Status at Discharge Cognitive/behavioral status at discharge: Stable Time Spent with Patient Time attestation: Total time spent providing and/or coordinating discharge services: 35 minutes Time spent: Greater than 30 minutes Specific discharge activities: Left message with family. Exam Narrative: AF 96.7 102/46 67 16 97% ra Gen - NARD Chest - clear anteriroly, nml RR CV - RRR S1/S2 Abd - Soft, scaphoid Ext - No pedal edema. Neuro - Alert but confused Skin - no bruising or mass to the left gluteal region DS: Data Data Completed and Pending Labs on day of discharge: Labs from last 24 hours 06/16/21 06/16/21 06/15/21 05:43 05:43 05:23 WBC 4.1 L RBC 2.92 L Hgb 9.4 L Hct 29.2 L MCV 100.0 MCH 32.2 MCHC 32.2 RDW 13.2 Plt Count 298 MPV 9.0 Immature Gran % (Auto) 0.2 Neut % (Auto) 56.9 Lymph % (Auto) 24.9 [place] % (Auto) 13.1 H Eos % (Auto) 4.4 Baso % (Auto) 0.5 Lymph # (Auto) 1.01 [place] # (Auto) 0.5 Eos # (Auto) 0.2 Baso # (Auto) 0.0 Abs Immat Gran (auto) 0.01 Absolute Neuts (auto) 2.3 Absolute Nucleated RBC 0.0 Nucleated RBC % 0.0 Sodium 138 Potassium 3.6 Chloride 106 Carbon Dioxide 31 H Anion Gap 1 L BUN 14 Creatinine 0.60 L Estim Creat Clear Calc 41 Estimated GFR > 60 Glucose 83 Calcium 8.4 Iron TIBC % Saturation Ferritin Vitamin B12 507.0 Folate 9.1 06/15/21 05:23 WBC RBC Hgb Hct MCV MCH MCHC RDW Plt Count MPV Immature Gran % (Auto) Neut % (Auto) Lymph % (Auto) [place] % (Auto) Eos
[2021-06-16 13:30] LABS: EDCOVIDSCREEN Negative (Negative)
--- NOTE | 2021-06-16 13:57 | PC.NURSE ---
Report given to Katy at [facility], pt to leave via ambulance to facility this afternoon.
[2021-06-16 14:00] VITALS: BP 135/63; PULSE 70; RESP 16; TEMP 36.7; O2SAT 97
== END 2021-06-16 17:20 | DRG 605 ==
LOC: ANHED 20:29 → ANH3MEDSUR 20:58
PROVIDERS: Internal Medicine; Admitting Provider Internal Medicine; Emergency Provider General Practice; PCP Internal Medicine; Visit Provider Internal Medicine
DX: S70.02XA Contusion of left hip, initial encounter (principal); Z68.1 Body mass index [BMI] 19.9 or less, adult; L02.416 Cutaneous abscess of left lower limb; F17.210 Nicotine dependence, cigarettes, uncomplicated; S51.001A Unspecified open wound of right elbow, initial encounter; W19.XXXA Unspecified fall, initial encounter; Z20.822 Contact with and (suspected) exposure to COVID-19; E86.0 Dehydration; R63.6 Underweight; D64.9 Anemia, unspecified; F03.90 Unspecified dementia, unspecified severity, without behavioral disturbance, psychotic disturbance, mood disturbance, and anxiety; F32.9 Major depressive disorder, single episode, unspecified; R13.10 Dysphagia, unspecified; R29.6 Repeated falls
CPT/HCPCS: 36415; 70450; 71045; 72125; 73200; 73502; 73701; 80048; 80053; 80202; 81001; 82550; 82565; 82607; 82728; 82746; 82747; 83540; 83550; 83605; 83735; 85025; 85610; 85730; 86140; 87040; 87426; 92610; 96361; 96365; 96367; 96372; 97116; 97161; 97165; 97530; 99212; 99285; A9270; C9803; G0378; G0463; J0690; J1630; J3370; J7030; Q9967

== ENCOUNTER 2021-09-03 09:53 | Emergency (ER) | payer MEDICARE, MEDICAID, SELFPAY ==
--- NOTE | ~2021-09-03 | XR_ITS ---
EXAMINATION: XR pelvis 1-2V DATE: 09/03/2021 12:06 INDICATION: Hip injury. TECHNIQUE: An anteroposterior view of the pelvis was obtained. COMPARISON: Pelvis radiograph 06/08/2021 FINDINGS: There is lumbar dextroscoliosis and moderate to severe spondylosis. No fracture. There is m ild osteoarthritis of the hips. A 9 cm tubular foreign body overlies right pelvis that is likely outs felice the patient. IMPRESSION: 1. No fracture. 2. Mild osteoarthritis of the hips. Reviewed, dictated and finalized at location B.
--- NOTE | ~2021-09-03 | CT_ITS ---
EXAMINATION: CT cervical spine wo con DATE: 09/03/2021 12:02 INDICATION: Neck injury. TECHNIQUE: Computed tomography (CT) of the cervical spine was performed without intravenous contrast. Automated exposure control and iterative reconstruction technique were employed. The dose-length pro duct was 100.40 mGy-cm. COMPARISON: CT cervical spine 06/08/2021 FINDINGS: There is mild scarring at the lung apices. There is 10 degrees levoscoliosis of cervical sp ine. There is kyphosis of cervical spine. There is 2 mm retrolisthesis of C6 on C7. There is mild chr onic anterior wedging of T5 and T7 vertebral bodies. There is a chronic compression fracture of T3. T here is mildly decreased disc height at C2-C3 and severely decreased disc height from C3-C4 through C 6-C7 with endplate remodeling. 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 The foll owing disc levels are specifically discussed: C2-C3: There is moderate right and mild left uncovertebral joint osteoarthritis. There is severe bila teral facet joint osteoarthritis. There is no neural foraminal stenosis. There is no central canal st enosis. C3-C4: There is severe bilateral uncovertebral joint osteoarthritis. There is mild bilateral facet felicia int osteoarthritis. There is mild bilateral neural foraminal stenosis. There is mild central canal st enosis. C4-C5: There is severe bilateral uncovertebral joint osteoarthritis. There is moderate right facet felicia int osteoarthritis. There is ankylosis of left facet joint with mild hypertrophy. There is mild bilat eral neural foraminal stenosis. There is mild central canal stenosis. C5-C6: There is ankylosis of the uncovertebral joints with severe hypertrophy. There is mild right fa cet joint osteoarthritis. There is ankylosis of left facet joint with moderate hypertrophy. There is mild bilateral neural foraminal stenosis. There is mild central canal stenosis. C6-C7: There is severe bilateral uncovertebral joint osteoarthritis. There is moderate right and mild left facet joint osteoarthritis. There is mild bilateral neural foraminal stenosis. There is mild ce ntral canal stenosis. C7-T1: There is no uncovertebral joint osteoarthritis. There is severe bilateral facet joint osteoart hritis. There is mild bilateral neural foraminal stenosis. There is no central canal stenosis. IMPRESSION: 1. No acute fracture. 2. Severe cervical spondylosis. Reviewed, dictated and finalized at location B.
--- NOTE | ~2021-09-03 | CT_ITS ---
EXAMINATION: CT brain wo con DATE: 09/03/2021 12:02 INDICATION: Head injury. TECHNIQUE: Computed tomography (CT) of the head was performed without intravenous contrast. The mA wa s adjusted according to patient size. Iterative reconstruction technique was employed. The dose-lengt h product was 605.33 mGy-cm. COMPARISON: Head CT 06/08/2021 FINDINGS: There is diffuse brain volume loss. There are scattered areas of low attenuation in the cer ebral white matter. There is no intracranial hemorrhage, acute infarction, or abnormal intracranial m ass lesion. The ventricles are normal in size. The orbits are normal. There is near complete opacific ation of the left frontal, anterior ethmoid, and maxillary sinuses with thickening and sclerosis of t he sinus carias, consistent with chronic sinusitis. The mastoid air cells are normal. IMPRESSION: 1. Stable extensive nonspecific cerebral white matter disease, which likely represents chronic small vessel ischemic disease. 2. Chronic sinusitis. Reviewed, dictated and finalized at location B. IMPRESSION: 1. Stable extensive nonspecific cerebral white matter disease, which likely rep resents chronic small vessel ischemic disease. 2. Chronic sinusitis.
--- NOTE | ~2021-09-03 | XR_ITS ---
XR chest 1V 09/03/2021 12:06 Indication: Status post fall. Chest pain. Procedure: AP view of the chest Comparison: 06/08/2019 Findings: Heart size normal. There is atherosclerosis of the aorta. There is a healed left seventh ri b fracture with callus. No focal air space disease, pulmonary edema, pleural effusion or suspected pn eumothorax. Osteopenia. No acute osseous abnormality. Impression: 1: No acute cardiopulmonary disease. Reviewed, dictated and finalized at location A. Impression: 1: No acute cardiopulmonary disease.
[2021-09-03 10:00] VITALS: BP 104/55; PULSE 58; RESP 18; TEMP 36; O2SAT 99
--- NOTE | 2021-09-03 11:26 | PC.NURSE ---
Pt has 1 L NS infused, initiated by EMS in route. 0 volume left in container.
[2021-09-03 11:27] VITALS: BP 90/60; PULSE 59; RESP 15; O2SAT 98
--- NOTE | 2021-09-03 11:34 | ECG_ITS ---
Measurements Intervals [place] Rate: 58 P: 85 NM: 193 QRS: 24 QRSD: 90 T: 76 QT: 424 QTc: 419 Interpretive Statements SINUS BRADYCARDIA BORDERLINE T WAVE ABNORMALITY- HIGH LATERAL LEADS BASELINE ARTIFACT- I, II, III, AVR, AVL, AVF, V1-V2 BORDERLINE ECG Electronically Signed On 09-03-2021 13:08:55 CDT by Joni Hernandez D.O.
--- NOTE | 2021-09-03 11:38 | ED.FALL ---
HPI - Fall General Chief Complaint: Fall Stated Complaint: Fall Time Seen by Provider: 09/03/21 10:33 Source: EMS and RN notes reviewed Mode of arrival: EMS History of Present Illness HPI Narrative: Patient is 81 years old white female [facility] by ambulance from [facility] because found on the floor this morning by staff. Patient is awake and oriented x0 which is her normal mentation by staff. No obvious injury. Related Data Home Medications Medication Instructions Recorded Confirmed mirtazapine 15 mg PO HS 07/04/20 06/08/21 quetiapine 12.5 mg PO BID 07/04/20 06/08/21 calcium carbonate 500 mg PO DAILY 06/01/21 06/08/21 TheraTears 1 drp EACH EYE DAILY PRN 06/06/21 06/08/21 acetaminophen 325 mg PO Q4H PRN 06/06/21 06/08/21 acetaminophen [Tylenol Extra 1,000 mg PO DAILY PRN 06/06/21 06/08/21 Strength] cholecalciferol (vitamin D3) 25 mcg PO DAILY 06/06/21 06/08/21 docusate sodium [Colace] 100 mg PO DAILY 06/06/21 06/08/21 Allergies Allergy/AdvReac Type Severity Reaction Status Date / Time No Known Allergies Allergy Verified 09/03/21 10:13 Review of Systems Review of Systems: ROS unobtainable: Yes unobtainable due to mental status PMFSH Past Medical History Medical History Dementia Dysphagia Major depressive disorder Surgical History Surgical History Surgical history unknown Family History Family History Other Unknown family medical history Social History Social History Smoking status: Smoker, status unknown Alcohol intake: unknown Substance use: unknown Spiritual care concerns: No Exam Narrative: General appearance: Well-developed, well-nourished Skin: Normal color Head: Normocephalic, nontraumatic Eyes: Clear conjunctiva ENT: Oropharynx normal, ears normal, nose normal Neck: Supple, nontender Chest and respiratory: Airway patent, no respiratory distress, no accessory muscle use Heart: Regular rate/rhythm Abdomen: Soft, nontender, no organomegaly, quiet bowel sounds Vascular: Normal peripheral pulses, normal capillary refill. Musculoskeletal: Stiffness and rigidity of all over, upper and lower extremities Neurologic: Patient is disoriented x4 Course Vital Signs Vital signs: Vital Signs Temperature 36.0 C L 09/03/21 10:00 Pulse Rate 58 L 09/03/21 10:00 Respiratory Rate 18 09/03/21 10:00 Blood Pressure 104/55 L 09/03/21 10:00 Pulse Oximetry 99 09/03/21 10:00 Temperature 36.0 C L 09/03/21 10:00 Pulse Rate 57 L 09/03/21 12:23 Respiratory Rate 12 09/03/21 12:23 Blood Pressure 98/42 L 09/03/21 12:23 Pulse Oximetry 100 09/03/21 12:23 - Fall Lab Data Result diagrams: 09/03/21 11:51 09/03/21 11:51 Labs: Lab Results 09/03/21 09/03/21 09/03/21 Range/Units 11:51 11:51 11:51 WBC 6.2 (4.5-10.0) K/mm3 RBC 3.38 L (4.2-5.4) M/mm3 Hgb 10.5 L (12.0-15.0) g/dL Hct 33.5 L (37.0-47.0) % MCV 99.1 (80-100) fl MCH 31.1 (26-34) pg MCHC 31.3 L (32-36) g/dl RDW 13.1 (11.5-14.5) % Plt Count 198 (150-375) k/mm3 MPV 9.6 (7.4-10.4) fl Immature Gran % (Auto) 0.3 (0-0.5) % Neut % (Auto) 79.7 H (45.5-73.1) % Lymph % (Auto) 13.3 L (18.3-44.2) % [place] % (Auto) 6.1 (2.6-8.5) % Eos % (Auto) 0.3 (0-4.4) % Baso % (Auto) 0.3 (0.2-1.2) % Lymph # (Auto) 0.83 L (0.9-3.2) K/mm3 [place] # (Auto) 0.4 (0.1-0.6) K/mm3 Eos # (Auto) 0.0 (0-0.3) K/mm3 Baso # (Auto) 0.0 (0.0-0.1
--- NOTE | 2021-09-03 11:52 | PC.NURSE ---
Pt to XRAY/CT scan via stretcher at this time.
[2021-09-03 12:03] LABS: Basophils Percent Auto 0.3 % (0.2-1.2); Eosinophils Percent Auto 0.3 % (0-4.4); Hematocrit 33.5 % (37.0-47.0); Hemoglobin 10.5 g/dL (12.0-15.0); Immature Granulocyte Absolute 0.02 K/mm3 (0.00-0.031); Immature Granulocyte Percent A 0.3 % (0-0.5); Lymphocytes Absolute Auto 0.83 K/mm3 (0.9-3.2); Lymphocytes Percent Auto 13.3 % (18.3-44.2); Mean Corpuscular HGB Conc 31.3 g/dl (32-36); Mean Corpuscular Hemoglobin 31.1 pg (26-34); Mean Corpuscular Volume 99.1 fl (80-100); Mean Platelet Volume 9.6 fl (7.4-10.4); Monocytes Absolute Auto 0.4 K/mm3 (0.1-0.6); Monocytes Percent Auto 6.1 % (2.6-8.5); Neutrophils Percent Auto 79.7 % (45.5-73.1); Platelet Count Result 198 k/mm3 (150-375); Red Blood Count 3.38 M/mm3 (4.2-5.4); Red Cell Distribution Width 13.1 % (11.5-14.5); White Blood Count 6.2 K/mm3 (4.5-10.0)
[2021-09-03 12:13] LABS: Alanine Aminotransferase 17 U/L (6-35); Albumin Level 3.7 g/dL (3.5-5.1); Alkaline Phosphatase 79 U/L (38-126); Anion Gap 4 mmol/L (8-16); Aspartate Amino Transferase 30 U/L (14-36); Bilirubin,Total 0.2 mg/dL (0.2-1.3); Blood Urea Nitrogen 23 mg/dL (7-17); Calcium 8.4 mg/dL (8.4-10.2); Carbon Dioxide 27 mmol/L (22-30); Chloride 104 mmol/L (98-107); Creatine Kinase 93 U/L (30-135); Estimated Glomerular Filt Rate > 60; Glucose 100 mg/dL (65-110); Sodium 135 mmol/L (137-145)
[2021-09-03 12:15] LABS: Partial Thromboplastin Time 29.3 SECONDS (22.3-36.8); Prothrombin Time 12.5 Seconds (11.1-14.7)
[2021-09-03 12:23] VITALS: BP 98/42; PULSE 57; RESP 12; O2SAT 100
[2021-09-03 12:24] LABS: Troponin I < 0.012 ng/mL (0.000-0.034)
[2021-09-03 12:33] LABS: Lactic Acid Reflex 1.7 mmol/L (0.7-2.0)
[2021-09-03 12:37] LABS: Appearance Urine Clear (Clear); Bilirubin Urine Negative (Negative); Blood Urine Negative (Negative); Color Urine Yellow (Yellow); Glucose Urine UA Negative (Negative); Ketones Urine Negative (Negative); Leukocyte Esterase Ur Negative LEU/UL (Negative); Nitrate Urine Negative (Negative); Protein Urine Negative (Negative); Urobilinogen Urine 0.2 mg/dL (<2.0); pH Urine 6.5 (5.0-9.0)
[2021-09-03 12:53] LABS: Add Urine Microscopic? NO; Amphetamine Screen Urine Negative (Negative); Barbiturate Screen Urine Negative (Negative); Benzodiazepines Screen Urine Negative (Negative); Cannabinoid Screen Urine Negative (Negative); Cocaine Screen Urine Negative (Negative); Methadone Screen Urine Negative (Negative); Opiate Screen Urine Negative (Negative); Phencyclidine Screen Urine Negative (Negative)
[2021-09-03 13:03] VITALS: BP 108/72; PULSE 58; RESP 12; O2SAT 100
== END 2021-09-03 13:21 ==
PROVIDERS: Emergency Provider Emergency Medicine; PCP Internal Medicine
DX: F03.90 Unspecified dementia, unspecified severity, without behavioral disturbance, psychotic disturbance, mood disturbance, and anxiety (principal); F32.9 Major depressive disorder, single episode, unspecified; R00.1 Bradycardia, unspecified; Z79.818 Long term (current) use of other agents affecting estrogen receptors and estrogen levels; Z79.899 Other long term (current) drug therapy; W19.XXXA Unspecified fall, initial encounter
CPT/HCPCS: 36415; 51701; 70450; 71045; 72125; 72170; 80053; 80307; 81003; 82550; 83605; 84484; 85025; 85610; 85730; 93005; 99284

== ENCOUNTER 2021-11-30 20:41 | Emergency (ER) | payer OTHER, SELFPAY ==
--- NOTE | ~2021-11-30 | XR_ITS ---
XR pelvis 1-2V 11/30/2021 20:57 Indication: Status post fall. Procedure: AP portable pelvis Comparison: 09/03/2021 Findings: Pelvic rings are intact. Sacral foramen are symmetric. Moderate lumbar spondylosis. There i s osteitis pubis. No acute fracture or traumatic malalignment. Impression: 1: No acute fracture. Reviewed, dictated and finalized at location A. Impression: 1: No acute fracture.
--- NOTE | ~2021-11-30 | XR_ITS ---
XR chest 1V portable 11/30/2021 20:57 Indication: Status post fall. Procedure: AP portable chest Comparison: Comparison to multiple prior studies sequentially, with oldest reviewed study dated 06/08. Findings: Heart size normal. Bilateral interstitial infiltrates are present. No pleural effusion or p neumothorax. There are multiple healing left rib fractures. Impression: 1: Diffuse bilateral interstitial infiltrates which may represent mild edema or an atypical pneumonia . Reviewed, dictated and finalized at location A. Impression: 1: Diffuse bilateral interstitial infiltrates which may represent mild edema or an atypical pneumonia.
[2021-11-30 20:43] VITALS: BP 125/79; PULSE 67; RESP 16; TEMP 36.2; O2SAT 97
--- NOTE | 2021-11-30 20:44 | ED.FALL ---
HPI - Fall General Chief Complaint: Fall Stated Complaint: fall Time Seen by Provider: 11/30/21 20:43 History of Present Illness HPI Narrative: 81-year-old female sent in from her nursing facility after a unwitnessed fall. Patient is chronically confused and demented. She is oriented x0. She is very pleasant and talking and laughing appears to be in no distress. She is brought in by EMS. The personnel at the facility was questioning whether she had abnormal hip . Not sure if this patient ambulates normally. Patient has a leather helmet on which apparently she wears all the time. Related Data Home Medications Medication Instructions Recorded Confirmed mirtazapine 7.5 mg tablet 15 mg PO HS 07/04/20 06/08/21 quetiapine 25 mg tablet 12.5 mg PO BID 07/04/20 06/08/21 calcium carbonate 500 mg PO DAILY 06/01/21 06/08/21 acetaminophen 325 mg tablet 325 mg PO Q4H PRN Pain (Scale 06/06/21 06/08/21 Score 1-3) acetaminophen 500 mg tablet 1,000 mg PO DAILY PRN Pain (Scale 06/06/21 06/08/21 (Tylenol Extra Strength) Score 4-6) carboxymethylcellulose sodium 0.25 1 drp EACH EYE DAILY PRN Dry Eye(S) 06/06/21 06/08/21 % eye drops (TheraTears) cholecalciferol (vitamin D3) 25 25 mcg PO DAILY 06/06/21 06/08/21 mcg (1,000 unit) capsule docusate sodium 100 mg capsule 100 mg PO DAILY 06/06/21 06/08/21 (Colace) Allergies Allergy/AdvReac Type Severity Reaction Status Date / Time shrimp Allergy Unknown Verified 11/30/21 20:50 Review of Systems Review of Systems: ROS unobtainable: Yes unobtainable due to mental status PMFSH Past Medical History Medical History Dementia Dysphagia Major depressive disorder Surgical History Surgical History Surgical history unknown Family History Family History Other Unknown family medical history Social History Social History Smoking status: Smoker, status unknown Alcohol intake: unknown Substance use: unknown Spiritual care concerns: No Exam Narrative: APPEARANCE: Well appearing, no pain or distress, well-nourished. Head Normocephalic and atraumatic. EYES: PERRLA/EOMI, conjunctivae clear. NOSE: Normal with no drainage EARS:TMS clear with Henriquez, with good light reflex. THROAT: Pharynx clear, no exudate. NECK: Supple. No adenopathy, no masses. No palpable tenderness RESPIRATORY: Airway patent, respirations nonlabored. Clear to auscultation bilaterally, no rales, rhonchi, wheezing. CARDIOVASCULAR: Regular rate and rhythm without murmurs, rubs, or gallops. ABDOMINAL: Soft, nontender, nondistended, no hepatosplenomegaly Musculoskeletal: Moves all extremities. Strength/ROM intact, No edema, No calf tenderness. Old abrasions noted to the shins bilaterally but no acute lesions noted. NEURO: Alert. She is talking continuously but not engaging with us or answering any questions appropriately. She is happy and smiling. SKIN:: Warm, dry. Normal Color PSYCHIATRIC: Unable to evaluate Course Vital Signs Vital signs: Vital Signs Temperature 97.1 F L 11/30/21 20:43 Pulse Rate 67 11/30/21 20:43 Respiratory Rate 16 11/30/21 20:43 Blood Pressure 125/79 11/30/21 20:43 Pulse Oximetry 97 11/30/21 20:43 Oxygen Delivery Room Air 11/30/21 20:43 Temperature 97.1 F L 11/30/21 20:43 Pulse Rate 67 11/30/21 20:43 Respiratory Rate 16 11/30/21 20:43 Blood Pressure 125/79 11/30/21 20:43 Pulse Oximetry 97 11/30/21 20:43 Oxygen Delivery Room Air 11/30/21 20:43 MDM - Fall MDM Narrative Medical decision making narrative: Patient is demented unable to give any reliable history but appears to be in no distress. X-rays were obtained. Chest x-ray shows old healing left-sided rib fractures but no acute pathology. X-ray of her pelvis is int
--- NOTE | 2021-11-30 21:23 | PC.NURSE ---
called [facility] to request transport. ETA [phone]
[2021-11-30 21:30] VITALS: BP 143/86; PULSE 70; RESP 16; O2SAT 97
[2021-11-30 22:30] VITALS: BP 140/77; PULSE 61; RESP 16; O2SAT 100
--- NOTE | 2021-11-30 23:16 | PC.NURSE ---
[facility] eta for arrival is [id number]
--- NOTE | 2021-11-30 23:19 | PC.NURSE ---
called [facility]. Refused as no current BLS crew to transfer
--- NOTE | 2021-11-30 23:25 | PC.NURSE ---
[facility] declined at [id number]
[2021-11-30 23:30] VITALS: BP 126/81; PULSE 70; RESP 16; O2SAT 100
--- NOTE | 2021-11-30 23:32 | PC.NURSE ---
[facility] [id number]
[2021-12-01 00:30] VITALS: BP 126/81; PULSE 70; RESP 16; O2SAT 99
[2021-12-01 02:00] VITALS: BP 142/82; PULSE 70; RESP 16; O2SAT 99
--- NOTE | 2021-12-01 02:25 | PC.NURSE ---
[facility] arrived at 0225
== END 2021-12-01 02:30 ==
PROVIDERS: Emergency Provider Emergency Medicine; PCP Internal Medicine
DX: Z04.3 Encounter for examination and observation following other accident (principal); F03.90 Unspecified dementia, unspecified severity, without behavioral disturbance, psychotic disturbance, mood disturbance, and anxiety; R91.8 Other nonspecific abnormal finding of lung field; W19.XXXA Unspecified fall, initial encounter
CPT/HCPCS: 71045; 72170; 99284

== ENCOUNTER 2021-12-02 03:36 | Emergency (ER) | payer OTHER, SELFPAY ==
[2021-12-02 03:37] VITALS: BP 107/53; PULSE 54; RESP 15; TEMP 36.7; O2SAT 100
--- NOTE | 2021-12-02 03:46 | ED.BACK ---
HPI - Back Pain/Injury General Chief Complaint: Back Pain/Injury Stated Complaint: HIP/BACK PAIN POST FALL Time Seen by Provider: 12/02/21 03:41 History of Present Illness HPI Narrative: 81-year-old female who is demented and unable to carry on any conversation [facility] Apparently she had lumbar spine x-rays obtained during the day and it came back with a impression of compression deformity at the T12 level age-indeterminate. Subsequently they called the physician who told him to send the emergency room. This patient is not normally up and ambulatory she elicits no pain. Based upon this report this is a nonsurgical nonintervention type fracture. Related Data Home Medications Medication Instructions Recorded Confirmed mirtazapine 7.5 mg tablet 15 mg PO HS 07/04/20 06/08/21 quetiapine 25 mg tablet 12.5 mg PO BID 07/04/20 06/08/21 calcium carbonate 500 mg PO DAILY 06/01/21 06/08/21 acetaminophen 325 mg tablet 325 mg PO Q4H PRN Pain (Scale 06/06/21 06/08/21 Score 1-3) acetaminophen 500 mg tablet 1,000 mg PO DAILY PRN Pain (Scale 06/06/21 06/08/21 (Tylenol Extra Strength) Score 4-6) carboxymethylcellulose sodium 0.25 1 drp EACH EYE DAILY PRN Dry Eye(S) 06/06/21 06/08/21 % eye drops (TheraTears) cholecalciferol (vitamin D3) 25 25 mcg PO DAILY 06/06/21 06/08/21 mcg (1,000 unit) capsule docusate sodium 100 mg capsule 100 mg PO DAILY 06/06/21 06/08/21 (Colace) Allergies Allergy/AdvReac Type Severity Reaction Status Date / Time shrimp Allergy Unknown Verified 12/02/21 03:49 Review of Systems Review of Systems: ROS unobtainable: Yes unobtainable due to mental status PMFSH Past Medical History Medical History Dementia Dysphagia Major depressive disorder Surgical History Surgical History Surgical history unknown Family History Family History Other Unknown family medical history Social History Social History Smoking status: Smoker, status unknown Alcohol intake: unknown Substance use: unknown Spiritual care concerns: No Exam Narrative: APPEARANCE: Well appearing, no pain or distress Head Normocephalic and atraumatic. Has a leather helmet on. EYES: PERRLA/EOMI, conjunctivae clear. NOSE: Normal with no drainage EARS:TMS clear with Henriquez, with good light reflex. THROAT: Pharynx clear, no exudate. NECK: Supple. No adenopathy, no masses. RESPIRATORY: Airway patent, respirations nonlabored. Clear to auscultation bilaterally, no rales, rhonchi, wheezing. CARDIOVASCULAR: Regular rate and rhythm without murmurs, rubs, or gallops. ABDOMINAL: Soft, nontender, nondistended, no hepatosplenomegaly Musculoskeletal: Moves all extremities. Legs are noted to be contracted. Muscle atrophy noted. She has no tenderness to palpation along her entire cervical, thoracic, and lumbar spine. NEURO: Alert but pleasantly confused SKIN:: Warm, dry. Normal Color PSYCHIATRIC: Unable to evaluate Course Vital Signs Vital signs: Vital Signs Temperature 98.0 F 12/02/21 03:37 Pulse Rate 54 L 12/02/21 03:37 Respiratory Rate 15 12/02/21 03:37 Blood Pressure 107/53 L 12/02/21 03:37 Pulse Oximetry 100 12/02/21 03:37 Oxygen Delivery Room Air 12/02/21 03:37 Temperature 98.0 F 12/02/21 03:37 Pulse Rate 54 L 12/02/21 03:37 Respiratory Rate 15 12/02/21 03:37 Blood Pressure 107/53 L 12/02/21 03:37 Pulse Oximetry 100 12/02/21 03:37 Oxygen Delivery Room Air 12/02/21 03:37 MDM - Back Pain/Injury MDM Narrative Medical decision making narrative: Patient comes in with the report from her x-ray of the lumbar spine that was done yesterday. Based upon these findings there is no additional work-up, evaluation, or treatment that is needed. P
== END 2021-12-02 04:25 ==
LOC: ANHED 03:47
PROVIDERS: Emergency Provider Emergency Medicine; PCP Internal Medicine
DX: S22.080A Wedge compression fracture of T11-T12 vertebra, initial encounter for closed fracture (principal); F03.90 Unspecified dementia, unspecified severity, without behavioral disturbance, psychotic disturbance, mood disturbance, and anxiety; F32.9 Major depressive disorder, single episode, unspecified; W19.XXXA Unspecified fall, initial encounter
CPT/HCPCS: 99281